=== PATIENT | female | born 1935 | race Caucasian/White ===

== ENCOUNTER 2018-08-19 11:21 | Inpatient (IN) | payer MEDICARE, OTHER ==
[~2018-08-19] VITALS: Ht 147.3 cm; Wt 56.8 kg
[~2018-08-19 11:21] MED LIST: ASPI-612 PO; ATEN25TA PO; ATOR20TA58 PO; CLOB15OI TP; CLOP75TA PO; HYDR15OI TP; LEVO25TA4 PO; METO25TA4 PO; SIMV20TA3 PO
--- NOTE | 2018-08-19 11:47 | PHYS DOC ---
Past Medical History Past Medical History: Dementia, Hypertension, Other Additional Past Medical Histor: POOR HISTORIAN Past Surgical History: Other Additional Past Surgical Histo: UNKNOWN Alcohol Use: None Drug Use: None Adult General Chief Complaint Chief Complaint: Palpitations HPI HPI Patient is a 83 year old female was brought here by EMS for evaluation of HEART PALPITATION, GENERALIZED WEAKNESS, EPIGASTRIC ABDOMINAL PAIN. Her family , patient had dementia, she had been treated for UTI recently. Patient woke up this morning feeling her heart was racing, with some abdominal pain, nausea. She had a remote history of atrial fibrillation, she is on atenolol. Due to the nausea and vomiting, patient did not take her atenolol this morning. EMS were called, they found her to be in SVT. Her heart rate was in the 180 beats per minutes. Patient somehow converted herself to sinus rhythm afterward. SHe continued to complain of epigastric abdominal pain. Patient denies any chest pain, no fever, no trouble breathing. Review of Systems Review of Systems Constitutional: Denies fever or chills [] Eyes: Denies change in visual acuity, redness, or eye pain [] HENT: Denies nasal congestion or sore throat [] Respiratory: Denies cough or shortness of breath [] Cardiovascular: POSITIVE FOR HEART PALPITATION. GI: Positive for abdominal pain, nausea, vomiting, NO bloody stools or diarrhea [] : Denies dysuria or hematuria [] Musculoskeletal: Denies back pain or joint pain [] Integument: Denies rash or skin lesions [] Neurologic: Denies headache, focal weakness or sensory changes [] Endocrine: Denies polyuria or polydipsia [] All other systems were reviewed and found to be within normal limits, except as documented in this note. Current Medications Current Medications Current Medications Medications (Trade) Dose Ordered Sig/Aly Start Time Stop Time Status Last Admin Dose Admin Morphine Sulfate (Morphine Sulfate) 2 mg PRN Q2HR PRN 08/19/18 15:15 08/20/18 15:14 Ondansetron HCl (Zofran) 4 mg PRN Q8HRS PRN 08/19/18 15:15 08/20/18 15:14 Sodium Chloride 1,000 ml @ 75 mls/hr [id number] 08/19/18 15:08 08/20/18 15:07 Allergies Allergies Allergies Coded Allergies Type Severity Reaction Last Updated Verified No Known Drug Allergies 09/28/15 No Physical Exam Physical Exam Constitutional: Well developed, well nourished, no acute distress, non-toxic appearance. [] HENT: Normocephalic, atraumatic, bilateral external ears normal, oropharynx moist, no oral exudates, nose normal. [] Eyes: PERRLA, EOMI, conjunctiva normal, no discharge. [] Neck: Normal range of motion, no tenderness, supple, no stridor. [] Cardiovascular:Heart rate regular rhythm, no murmur [] Lungs & Thorax: Bilateral breath sounds clear to auscultation [] Abdomen: Bowel sounds normal, soft, Tender to palpation in epigastric area, , no masses, no pulsatile masses. [] Skin: Warm, dry, no erythema, no rash. [] Back: No tenderness, no CVA tenderness. [] Extremities: No tenderness, no cyanosis, no clubbing, ROM intact, no edema. [] Neurologic: Alert, awake but disoriented to time and place, normal motor function, normal sensory function, no focal deficits noted. [] Psychologic: Affect normal, judgement normal, mood normal. [] Current Patient Data Vital Signs Vital Signs Date Time Temp Pulse Resp B/P (MAP) Pulse Ox O2 Delivery O2 Flow Rate FiO2 08/19/18 14:16 22 Room Air 08/19/18 14:00 76 98 08/19/18 12:30 192/118 (142) 08/19/18 11:21 98.3 98.3 Lab Values Laboratory Tests Test 08/19/18 11:51 08/19/18 11:57 White Blood Count 12.0 x10^3/uL (4.0-11.0) H Red Blood Count 4.64 x10^6/uL (3.50-5.40) Hemoglobin 13.7 g/dL (12.0-15.5) Hematocrit 40.0 % (36.0-47.0) Mean Corpuscular Volume 86 fL (79-100) Mean Corpuscular Hemoglobin 30 pg (25-35) Mean Corpuscular Hemoglobin Concent 34 g/dL (31-37) Red Cell Distribution Width 13.7 % (11.5-14.5) Platelet Count 257 x10^3/uL (140-400) Neutrophils (%) (Auto) 87 % (31-73) H Lymphocytes (%) (Auto) 7 % (24-48) L Monocytes (%) (Auto) 4 % (0-9) Eosinophils (%) (Auto) 1 % (0-3) Basophils (%) (Auto) 1 % (0-3) Neutrophils # (Auto) 10.5 x10^3uL (1.8-7.7) H Lymphocytes # (Auto) 0.8 x10^3/uL (1.0-4.8) L Monocytes # (Auto) 0.5 x10^3/uL (0.0-1.1) Eosinophils # (Auto) 0.1 x10^3/uL (0.0-0.7) Basophils # (Auto) 0.1 x10^3/uL (0.0-0.2) Segmented Neutrophils % 87 % (35-66) H Band Neutrophils % 1 % (0-9) Lymphocytes % 7 % (24-48) L Atypical Lymphocytes % (Manual) 1 % (0-0) H Monocytes % 4 % (0-10) Platelet Estimate Adequate (ADEQUATE) Large Platelets Few Prothrombin Time 13.0 SEC (11.7-14.0) Prothrombin Time INR 1.0 (0.8-1.1) Sodium Level 141 mmol/L (136-145) Potassium Level 4.8 mmol/L (3.5-5.1) Chloride Level 104 mmol/L (98-107) Carbon Dioxide Level 22 mmol/L (21-32) Anion Gap 15 (6-14) H Blood Urea Nitrogen 18 mg/dL (7-20) Creatinine 2.0 mg/dL (0.6-1.0) H Estimated GFR (Cockcroft-Gault) 23.7 BUN/Creatinine Ratio 9 (6-20) Glucose Level 139 mg/dL (70-99) H Calcium Level 9.7 mg/dL (8.5-10.1) Magnesium Level 2.3 mg/dL (1.8-2.4) Total Bilirubin 0.7 mg/dL (0.2-1.0) Aspartate Amino Transferase (AST) 29 U/L (15-37) Alanine Aminotransferase (ALT) 20 U/L (14-59) Alkaline Phosphatase 90 U/L (46-116) Creatine Kinase 72 U/L (26-192) Creatine Kinase MB (Mass) 1.3 ng/mL (0.0-3.6) Creatine Kinase MB Relative Index % (0-4) Troponin I Quantitative < 0.017 ng/mL (0.000-0.055) AY-Rrr-E-Type Natriuretic Peptide 295 pg/mL (0-449) Total Protein 7.6 g/dL (6.4-8.2) Albumin 3.3 g/dL (3.4-5.0) L Albumin/Globulin Ratio 0.8 (1.0-1.7) L Thyroid Stimulating Hormone (TSH) 1.931 uIU/mL (0.358-3.74) Free Thyroxine 1.45 ng/dL (0.76-1.46) Urine Collection Type Unknown Urine Color Yellow Urine Clarity Clear Urine pH 6.0 Urine Specific [place] 1.010 Urine Protein 100 mg/dL (NEG-TRACE) Urine Glucose (UA) Negative mg/dL (NEG) Urine Ketones (Stick) 15 mg/dL (NEG) Urine Blood Trace (NEG) Urine Nitrite Negative (NEG) Urine Bilirubin Negative (NEG) Urine Urobilinogen Dipstick 0.2 mg/dL (0.2 mg/dL) Urine Leukocyte Esterase Moderate (NEG) Urine RBC 0 /HPF (0-2) Urine WBC 20-40 /HPF (0-4) Urine Squamous Epithelial Cells Mod /LPF Urine Bacteria 0 /HPF (0-FEW) Urine Hyaline Casts Moderate /HPF Urine Mucus Mod /LPF Laboratory Tests 08/19/18 11:51 Laboratory Tests 08/19/18 11:51 EKG EKG EKG: HEART RATE 82 BPM, SINUS RHYTHM, NO STEMI. PROLONG QT Radiology/Procedures Radiology/Procedures [][facility] [address] [place] [address] IMAGING REPORT Signed PATIENT: HARESH GOMEZ ACCOUNT: [id number] : 1935 LOCATION: ER AGE: 83 SEX: F EXAM STATUS: PRE ER ORD. PHYSICIAN: BERTHA NETTLES DO REASON: heart palpitation PROCEDURE: PORTABLE CHEST 1V Portable chest, 08/19/2018: HISTORY: Tachycardia The heart size and pulmonary vascularity are within normal limits. No pulmonary infiltrate is seen. There is no evidence of pleural fluid. Scattered degenerative changes are present in the spine and at both shoulders. IMPRESSION: No acute cardiopulmonary abnormality is detected. Electronically signed by: Sundeep High MD (08/19/2018 12:14 PM) [facility] DICTATED and SIGNED BY: SUNDEEP HIGH MD DATE: 08/19/18 1213 [facility] [address] [place] [address] IMAGING REPORT Signed PATIENT: HARESH GOMEZ ACCOUNT: [id number] : 1935 LOCATION: ER AGE: 83 SEX: F EXAM STATUS: REG ER ORD. PHYSICIAN: BERTHA NETTLES DO REASON: abdominal pain, evaluate gallbladder PROCEDURE: ABDOMEN LTD LIMITED ABDOMINAL ULTRASOUND History: Right upper quadrant pain. Comparison: CT abdomen pelvis August 19, 2018. Procedure: Transabdominal ultrasound images are obtained. Findings: Visualized pancreas is unremarkable. Liver is normal in echogenicity. No focal hepatic masses are identified. Right hepatic lobe measures 10.9 cm in length. Gallbladder gallbladder demonstrates presence of small gallstones in the gallbladder neck. No pericholecystic fluid is identified. The gallbladder wall is borderline in size measuring 3-4 mm. Common bile duct measures normally at 3 mm in diameter. Right kidney measures 9.0 cm in length. There is no evidence of stone or hydronephrosis. Visualized IVC demonstrates normal caliber. Impression: 1. Small gallstones are seen near the gallbladder neck. Borderline gallbladder wall thickening is seen. No pericholecystic fluid is identified. Examination is considered equivocal for acute cystitis. If persistent concern for cholecystitis, nuclear medicine hepatic biliary scan could be performed. Electronically signed by: Tomy Salcedo MD (08/19/2018 3:12 PM) [place] [id number] DICTATED and SIGNED BY: TOMY SALCEDO MD DATE: 08/19/18 1508 [facility] [address] [place] [address] IMAGING REPORT Signed PATIENT: HARESH GOMEZ ACCOUNT: [id number] : 1935 LOCATION: ER AGE: 83 SEX: F EXAM STATUS: REG ER ORD. PHYSICIAN: BERTHA NETTLES DO REASON: LOWER ABDOMINAL PAIN PROCEDURE: CT ABDOMEN PELVIS WO CONTRAST PQRS Compliance Statement: One or more of the following individualized dose reduction techniques were utilized for this examination: 1. Automated exposure control 2. Adjustment of the mA and/or kV according to patient size 3. Use of iterative reconstruction technique CT ABDOMEN PELVIS WO CONTRAST Clinical Indication: LOWER ABD PAIN, nausea Comparison: None. Technique: Helical CT imaging of the abdomen and pelvis is performed without IV or oral contrast. Findings: Evaluation of solid organs and bowel is limited without oral and IV contrast, decreasing sensitivity for detection of pathology. Lung bases essentially clear. Coronary artery disease. Cardiac size normal. Cholelithiasis. Respiratory motion artifact degrades image quality. The liver, spleen, pancreas, adrenal glands, and abdominal aorta caliber are normal. There is moderate atherosclerotic calcification of the abdominal aorta. The kidneys are normal. Stomach unremarkable. No dilated small bowel. Mild distention of the rectum with stool. Sigmoid colon diverticulosis. Appendix not identified, no secondary signs of appendicitis. No abdominal adenopathy or free fluid. Urinary bladder is normal. Calcification in the uterus may be a small calcified fibroid. No pelvic free fluid. Mild grade 1 anterolisthesis of L3 on L4 and L4 on L5. IMPRESSION: 1. No acute abdominal or pelvic abnormality. 2. Sigmoid colon diverticulosis without diverticulitis. 3. Cholelithiasis. Electronically signed by: Diony Frank MD (08/19/2018 2:28 PM) [id number] DICTATED and SIGNED BY: DIONY FRANK MD DATE: 08/19/18 1422 Course & Med Decision Making Course & Med Decision Making Pertinent Labs and Imaging studies reviewed. (See chart for details) [] Dragon Disclaimer Dragon Disclaimer This electronic medical record was generated, in whole or in part, using a voice recognition dictation system. Departure Departure Impression: Primary Impression: Intermittent palpitations Additional Impressions: Cholelithiasis Renal failure Disposition: ADMITTED INPATIENT Admitting Physician: Xie. Berumen Condition: STABLE Referrals: BERTHA JARRETT MD (PCP) Problem Qualifiers BERTHA NETTLES DO Aug 19, 2018 11:47
[2018-08-19 12:02] LABS: BASO # 0.1 x10^3/uL (0.0-0.2); BASO % 1 % (0-3); EOS # 0.1 x10^3/uL (0.0-0.7); EOS % 1 % (0-3); HEMOGLOBIN 13.7 g/dL (12.0-15.5); LYMPH # 0.8 x10^3/uL (1.0-4.8); LYMPH % 7 % (24-48); MEAN CORPUSCULAR HEMOGLOBIN 30 pg (25-35); MEAN CORPUSCULAR HGB CONC 34 g/dL (31-37); MEAN CORPUSCULAR VOLUME 86 fL (79-100); MONO # 0.5 x10^3/uL (0.0-1.1); MONO % 4 % (0-9); NEUT # 10.5 x10^3uL (1.8-7.7); NEUT % 87 % (31-73); PLATELET COUNT 257 x10^3/uL (140-400); RED BLOOD COUNT 4.64 x10^6/uL (3.50-5.40); RED CELL DISTRIBUTION WIDTH 13.7 % (11.5-14.5)
[2018-08-19 12:15] LABS: CALCIUM 9.7 mg/dL (8.5-10.1); GFR 23.7; POTASSIUM 4.8 mmol/L (3.5-5.1)
--- NOTE | 2018-08-19 12:16 | EKG ---
[facility] [address] [place] [address] Test Date: 2018-08-19 Test Time: 11:32:56 Pat Name: HARESH GOMEZ Department: Room: Gender: F [employer]: : 1935 Requested By: BERTHA NETTLES Order Number: [id number] Reading MD: Adam Herring Measurements Intervals Tracy Rate: 82 P: 37 HI: 136 QRS: -29 QRSD: 114 T: 59 QT: 418 QTc: 492 Interpretive Statements SINUS RHYTHM LEFTWARD AXIS T ABNORMALITY IN HIGH LATERAL LEADS PROLONGED QT ABNORMAL ECG Electronically Signed On 08-21-2018 10:33:47 CDT by Adam Herring
--- NOTE | 2018-08-19 12:17 | RAD ---
Portable chest, 08/19/2018: HISTORY: Tachycardia The heart size and pulmonary vascularity are within normal limits. No pulmonary infiltrate is seen. There is no evidence of pleural fluid. Scattered degenerative changes are present in the spine and at both shoulders. IMPRESSION: No acute cardiopulmonary abnormality is detected. Electronically signed by: Sundeep High MD (08/19/2018 12:14 PM) [facility]
[2018-08-19 12:21] LABS: ALBUMIN 3.3 g/dL (3.4-5.0); ALBUMIN/GLOBULIN RATIO 0.8 (1.0-1.7); MAGNESIUM 2.3 mg/dL (1.8-2.4); TOTAL BILIRUBIN 0.7 mg/dL (0.2-1.0); TOTAL PROTEIN 7.6 g/dL (6.4-8.2)
[2018-08-19 12:27] LABS: BILIRUBIN,URINE NEGATIVE (NEG); CLARITY,URINE CLEAR; COLOR,URINE YELLOW; NITRITE,URINE NEGATIVE (NEG); PROTEIN,URINE 100 mg/dL (NEG-TRACE); UROBILINOGEN,URINE 0.2 mg/dL (0.2 mg/dL)
[2018-08-19 12:30] LABS: CREATINE KINASE 72 U/L (26-192); FREE T4 1.45 ng/dL (0.76-1.46); THYROID STIM HORMONE (TSH) 1.931 uIU/mL (0.358-3.74)
[2018-08-19 12:43] LABS: BACTERIA,URINE 0 /HPF (0-FEW); HYALINE CASTS, URINE MODERATE /HPF; RBC,URINE 0 /HPF (0-2); SQUAMOUS EPITHELIAL CELL,UR MOD /LPF; WBC,URINE 20-40 /HPF (0-4)
[2018-08-19] MEDS ORDERED: IV NORMAL SALINE 1000ML BAG 1,000 ML IV ONE (13:00)
[2018-08-19] MEDS ORDERED: MORPHINE SULFATE 4 MG/ML VIAL. IV ONE (14:00)
[2018-08-19 14:01] LABS: % ATYL 1 % (0-0); % BANDS 1 % (0-9); % LYMPHS 7 % (24-48); % MONOS 4 % (0-10); % SEGS 87 % (35-66); PLT ESTIMATE ADEQUATE (ADEQUATE)
--- NOTE | 2018-08-19 14:31 | RAD ---
PQRS Compliance Statement: One or more of the following individualized dose reduction techniques were utilized for this examination: 1. Automated exposure control 2. Adjustment of the mA and/or kV according to patient size 3. Use of iterative reconstruction technique CT ABDOMEN PELVIS WO CONTRAST Clinical Indication: LOWER ABD PAIN, nausea Comparison: None. Technique: Helical CT imaging of the abdomen and pelvis is performed without IV or oral contrast. Findings: Evaluation of solid organs and bowel is limited without oral and IV contrast, decreasing sensitivity for detection of pathology. Lung bases essentially clear. Coronary artery disease. Cardiac size normal. Cholelithiasis. Respiratory motion artifact degrades image quality. The liver, spleen, pancreas, adrenal glands, and abdominal aorta caliber are normal. There is moderate atherosclerotic calcification of the abdominal aorta. The kidneys are normal. Stomach unremarkable. No dilated small bowel. Mild distention of the rectum with stool. Sigmoid colon diverticulosis. Appendix not identified, no secondary signs of appendicitis. No abdominal adenopathy or free fluid. Urinary bladder is normal. Calcification in the uterus may be a small calcified fibroid. No pelvic free fluid. Mild grade 1 anterolisthesis of L3 on L4 and L4 on L5. IMPRESSION: 1. No acute abdominal or pelvic abnormality. 2. Sigmoid colon diverticulosis without diverticulitis. 3. Cholelithiasis. Electronically signed by: Diony Frank MD (08/19/2018 2:28 PM) [id number]
[2018-08-19] MEDS ORDERED: MORPHINE SULFATE 2 MG/ML VIAL. IV PRN ×2 (15:15→17:00)
[2018-08-19] MEDS ORDERED: ONDANSETRON PF 4 MG/2 ML VIAL. IV PRN ×2 (15:15→17:00)
--- NOTE | 2018-08-19 15:15 | RAD ---
LIMITED ABDOMINAL ULTRASOUND History: Right upper quadrant pain. Comparison: CT abdomen pelvis August 19, 2018. Procedure: Transabdominal ultrasound images are obtained. Findings: Visualized pancreas is unremarkable. Liver is normal in echogenicity. No focal hepatic masses are identified. Right hepatic lobe measures 10.9 cm in length. Gallbladder gallbladder demonstrates presence of small gallstones in the gallbladder neck. No pericholecystic fluid is identified. The gallbladder wall is borderline in size measuring 3-4 mm. Common bile duct measures normally at 3 mm in diameter. Right kidney measures 9.0 cm in length. There is no evidence of stone or hydronephrosis. Visualized IVC demonstrates normal caliber. Impression: 1. Small gallstones are seen near the gallbladder neck. Borderline gallbladder wall thickening is seen. No pericholecystic fluid is identified. Examination is considered equivocal for acute cystitis. If persistent concern for cholecystitis, nuclear medicine hepatic biliary scan could be performed. Electronically signed by: Tomy Díaz MD (08/19/2018 3:12 PM) [id number]
[2018-08-19 17:00] VITALS: BP 140/65
[2018-08-19] MEDS ORDERED: DOCUSATE SODIUM 100 MG CAPSULE. PO PRN (17:00)
[2018-08-19] MEDS ORDERED: traMADol 50 MG TABLET PO PRN (17:00)
[2018-08-19] MEDS ORDERED: ACETAMINOPHEN 325 MG TABLET. PO PRN (17:00)
--- NOTE | 2018-08-19 17:02 | PDOC1 ---
History and Physical Date of Admission Date of Admission 08/19/18 Identification/Chief Complaint Chief Complaint heart racing Source Source: Caregiver, Chart review, Patient History of Present Illness History of Present Illness HPI HPI Patient is a 83 year old female was brought here by EMS for evaluation of HEART PALPITATION today. pt is moderate demented, just said she didnot feel good today after waking up. and daughter at bedside helps the history. at work recieved her voicemail today saying she was not feeling good and heart racing. Pt called 911 since she could not reach . EMS found HR 180s, SVT vs. rapid afib. didnot give any meds, pt coverted to sinus later. pt has a few times of rapid afib recently, not seen card. She had nausea today, no vomiting, no chest pain or sob. She has epigastric abd pain. CT showed gallstone. NOW sinus 70s in ER. was converted to sinus 2014. was treated UTI recently. Past Medical History Cardiovascular: AFIB, HTN, Hyperlipidemia Renal/: UTI Endocrine: Hypothyroidism Past Surgical History Past Surgical History: No pertinent history Family History Family History: Hypertension Social History Smoke: No ALCOHOL: none Drugs: None Current Problem List Problem List Problems Medical Problems: (1) Cholelithiasis Status: Acute (2) Intermittent palpitations Status: Acute (3) Renal failure Status: Acute Current Medications Current Medications Current Medications Medications (Trade) Dose Ordered Sig/Aly Start Time Stop Time Status Last Admin Dose Admin Morphine Sulfate (Morphine Sulfate) 2 mg PRN Q2HR PRN 08/19/18 15:15 08/20/18 15:14 Ondansetron HCl (Zofran) 4 mg PRN Q8HRS PRN 08/19/18 15:15 08/20/18 15:14 Sodium Chloride 1,000 ml @ 75 mls/hr [id number] 08/19/18 15:08 08/20/18 15:07 Allergies Allergies Allergies Coded Allergies Type Severity Reaction Last Updated Verified No Known Drug Allergies 09/28/15 No ROS Review of System CONSTITUTIONAL: No fever or chills EYES: No recent changes SKIN: No rash or itching CARDIOVASCULAR: No chest pain, syncope, palpitations, or edema RESPIRATORY: No SOB or cough GASTROINTESTINAL: No nausea, vomiting or abdominal pain NEUROLOGICAL: No headaches or weakness ENDOCRINE: No cold or heat intolerance GENITOURINARY: No urgency or frequency of urination MUSCULOSKELETAL: No back pain or joint pain LYMPHATICS: No enlarged lymph nodes PSYCHIATRIC: No anxiety or depression Physical Exam Physical Exam GEN.: No apparent distress. Alert and oriented x2 to person, place. HEENT: Head is normocephalic, atraumatic NECK: Supple. LUNGS: Clear to auscultation. HEART: RRR, S1, S2 present. Peripheral pulses intact ABDOMEN: Soft, Positive bowel sounds. epigastric mild tenderness. EXTREMITIES: Without any cyanosis. NEUROLOGIC: Normal speech, normal tone PSYCHIATRIC: Normal affect, normal mood. SKIN: No ulcerations Vitals Vitals Vital Signs Date Time Temp Pulse Resp B/P (MAP) Pulse Ox O2 Delivery O2 Flow Rate FiO2 08/19/18 15:30 74 22 99/53 (68) 98 Room Air 08/19/18 11:21 98.3 98.3 Labs Labs Laboratory Tests Test 08/19/18 11:51 08/19/18 11:57 White Blood Count 12.0 x10^3/uL (4.0-11.0) Red Blood Count 4.64 x10^6/uL (3.50-5.40) Hemoglobin 13.7 g/dL (12.0-15.5) Hematocrit 40.0 % (36.0-47.0) Mean Corpuscular Volume 86 fL (79-100) Mean Corpuscular Hemoglobin 30 pg (25-35) Mean Corpuscular Hemoglobin Concent 34 g/dL (31-37) Red Cell Distribution Width 13.7 % (11.5-14.5) Platelet Count 257 x10^3/uL (140-400) Neutrophils (%) (Auto) 87 % (31-73) Lymphocytes (%) (Auto) 7 % (24-48) Monocytes (%) (Auto) 4 % (0-9) Eosinophils (%) (Auto) 1 % (0-3) Basophils (%) (Auto) 1 % (0-3) Neutrophils # (Auto) 10.5 x10^3uL (1.8-7.7) Lymphocytes # (Auto) 0.8 x10^3/uL (1.0-4.8) Monocytes # (Auto) 0.5 x10^3/uL (0.0-1.1) Eosinophils # (Auto) 0.1 x10^3/uL (0.0-0.7) Basophils # (Auto) 0.1 x10^3/uL (0.0-0.2) Segmented Neutrophils % 87 % (35-66) Band Neutrophils % 1 % (0-9) Lymphocytes % 7 % (24-48) Atypical Lymphocytes % (Manual) 1 % (0-0) Monocytes % 4 % (0-10) Platelet Estimate Adequate (ADEQUATE) Large Platelets Few Prothrombin Time 13.0 SEC (11.7-14.0) Prothromb Time International Ratio 1.0 (0.8-1.1) Sodium Level 141 mmol/L (136-145) Potassium Level 4.8 mmol/L (3.5-5.1) Chloride Level 104 mmol/L (98-107) Carbon Dioxide Level 22 mmol/L (21-32) Anion Gap 15 (6-14) Blood Urea Nitrogen 18 mg/dL (7-20) Creatinine 2.0 mg/dL (0.6-1.0) Estimated GFR (Cockcroft-Gault) 23.7 BUN/Creatinine Ratio 9 (6-20) Glucose Level 139 mg/dL (70-99) Calcium Level 9.7 mg/dL (8.5-10.1) Magnesium Level 2.3 mg/dL (1.8-2.4) Total Bilirubin 0.7 mg/dL (0.2-1.0) Aspartate Amino Transf (AST/SGOT) 29 U/L (15-37) Alanine Aminotransferase (ALT/SGPT) 20 U/L (14-59) Alkaline Phosphatase 90 U/L (46-116) Creatine Kinase 72 U/L (26-192) Creatine Kinase MB (Mass) 1.3 ng/mL (0.0-3.6) Creatine Kinase MB Relative Index % (0-4) Troponin I Quantitative < 0.017 ng/mL (0.000-0.055) TH-Xth-W-Type Natriuretic Peptide 295 pg/mL (0-449) Total Protein 7.6 g/dL (6.4-8.2) Albumin 3.3 g/dL (3.4-5.0) Albumin/Globulin Ratio 0.8 (1.0-1.7) Thyroid Stimulating Hormone (TSH) 1.931 uIU/mL (0.358-3.74) Free Thyroxine 1.45 ng/dL (0.76-1.46) Urine Collection Type Unknown Urine Color Yellow Urine Clarity Clear Urine pH 6.0 Urine Specific [place] 1.010 Urine Protein 100 mg/dL (NEG-TRACE) Urine Glucose (UA) Negative mg/dL (NEG) Urine Ketones (Stick) 15 mg/dL (NEG) Urine Blood Trace (NEG) Urine Nitrite Negative (NEG) Urine Bilirubin Negative (NEG) Urine Urobilinogen Dipstick 0.2 mg/dL (0.2 mg/dL) Urine Leukocyte Esterase Moderate (NEG) Urine RBC 0 /HPF (0-2) Urine WBC 20-40 /HPF (0-4) Urine Squamous Epithelial Cells Mod /LPF Urine Bacteria 0 /HPF (0-FEW) Urine Hyaline Casts Moderate /HPF Urine Mucus Mod /LPF Laboratory Tests Test 08/19/18 11:51 08/19/18 11:57 White Blood Count 12.0 x10^3/uL (4.0-11.0) Red Blood Count 4.64 x10^6/uL (3.50-5.40) Hemoglobin 13.7 g/dL (12.0-15.5) Hematocrit 40.0 % (36.0-47.0) Mean Corpuscular Volume 86 fL (79-100) Mean Corpuscular Hemoglobin 30 pg (25-35) Mean Corpuscular Hemoglobin Concent 34 g/dL (31-37) Red Cell Distribution Width 13.7 % (11.5-14.5) Platelet Count 257 x10^3/uL (140-400) Neutrophils (%) (Auto) 87 % (31-73) Lymphocytes (%) (Auto) 7 % (24-48) Monocytes (%) (Auto) 4 % (0-9) Eosinophils (%) (Auto) 1 % (0-3) Basophils (%) (Auto) 1 % (0-3) Neutrophils # (Auto) 10.5 x10^3uL (1.8-7.7) Lymphocytes # (Auto) 0.8 x10^3/uL (1.0-4.8) Monocytes # (Auto) 0.5 x10^3/uL (0.0-1.1) Eosinophils # (Auto) 0.1 x10^3/uL (0.0-0.7) Basophils # (Auto) 0.1 x10^3/uL (0.0-0.2) Segmented Neutrophils % 87 % (35-66) Band Neutrophils % 1 % (0-9) Lymphocytes % 7 % (24-48) Atypical Lymphocytes % (Manual) 1 % (0-0) Monocytes % 4 % (0-10) Platelet Estimate Adequate (ADEQUATE) Large Platelets Few Prothrombin Time 13.0 SEC (11.7-14.0) Prothromb Time International Ratio 1.0 (0.8-1.1) Sodium Level 141 mmol/L (136-145) Potassium Level 4.8 mmol/L (3.5-5.1) Chloride Level 104 mmol/L (98-107) Carbon Dioxide Level 22 mmol/L (21-32) Anion Gap 15 (6-14) Blood Urea Nitrogen 18 mg/dL (7-20) Creatinine 2.0 mg/dL (0.6-1.0) Estimated GFR (Cockcroft-Gault) 23.7 BUN/Creatinine Ratio 9 (6-20) Glucose Level 139 mg/dL (70-99) Calcium Level 9.7 mg/dL (8.5-10.1) Magnesium Level 2.3 mg/dL (1.8-2.4) Total Bilirubin 0.7 mg/dL (0.2-1.0) Aspartate Amino Transf (AST/SGOT) 29 U/L (15-37) Alanine Aminotransferase (ALT/SGPT) 20 U/L (14-59) Alkaline Phosphatase 90 U/L (46-116) Creatine Kinase 72 U/L (26-192) Creatine Kinase MB (Mass) 1.3 ng/mL (0.0-3.6) Creatine Kinase MB Relative Index % (0-4) Troponin I Quantitative < 0.017 ng/mL (0.000-0.055) TG-Jhr-X-Type Natriuretic Peptide 295 pg/mL (0-449) Total Protein 7.6 g/dL (6.4-8.2) Albumin 3.3 g/dL (3.4-5.0) Albumin/Globulin Ratio 0.8 (1.0-1.7) Thyroid Stimulating Hormone (TSH) 1.931 uIU/mL (0.358-3.74) Free Thyroxine 1.45 ng/dL (0.76-1.46) Urine Collection Type Unknown Urine Color Yellow Urine Clarity Clear Urine pH 6.0 Urine Specific [place] 1.010 Urine Protein 100 mg/dL (NEG-TRACE) Urine Glucose (UA) Negative mg/dL (NEG) Urine Ketones (Stick) 15 mg/dL (NEG) Urine Blood Trace (NEG) Urine Nitrite Negative (NEG) Urine Bilirubin Negative (NEG) Urine Urobilinogen Dipstick 0.2 mg/dL (0.2 mg/dL) Urine Leukocyte Esterase Moderate (NEG) Urine RBC 0 /HPF (0-2) Urine WBC 20-40 /HPF (0-4) Urine Squamous Epithelial Cells Mod /LPF Urine Bacteria 0 /HPF (0-FEW) Urine Hyaline Casts Moderate /HPF Urine Mucus Mod /LPF VTE Prophylaxis Ordered VTE Prophylaxis Devices: Yes VTE Pharmacological Prophylaxi: Yes Assessment/Plan Assessment/Plan rapid afib moderate-severe dementia HTN abd pain with cholelithiasis EMMANUEL, vasomotor mild malnutrition leukocytosis plan: card, gi, sx consult echo tsh ok cont metoprolol for now tele ivf labs tmr US showed possible acute lillian, add ceftriaxone, flagyl for now dvt ppx PTOT SCARLETT MARX MD Aug 19, 2018 17:02
[2018-08-19] MEDS ORDERED: FLUO20CA8 PO (17:05)
[2018-08-19] MEDS ORDERED: ATEN50TA PO (17:05)
[2018-08-19] MEDS ORDERED: OMEP20CA9 PO (17:05)
[2018-08-19] MEDS: IV NORMAL SALINE 1000ML BAG 1,000 ML IV SCH (17:35)
[2018-08-19] MEDS: cefTRIAXone IV Push 1 GM VIAL. IVP SCH (17:42)
[2018-08-19] MEDS: ALPRAZolam 0.25 MG TABLET PO PRN (17:51)
[2018-08-19 19:00] VITALS: BP 121/55
[2018-08-19] MEDS: METOPROLOL TART IMMED RELEASE 25 MG TABLET. PO SCH (21:22)
[2018-08-19] MEDS: ATORVASTATIN CALCIUM 20 MG TABLET PO SCH (21:22)
[2018-08-19] MEDS: LACTOBACILLUS RHAMNOSUS GG 1 CAPSULE. PO SCH (21:22)
[2018-08-19] MEDS: ENOXAPARIN 30 MG/0.3 ML SYRINGE. SQ SCH (21:23)
[2018-08-19] MEDS: CLOBETASOL EMOLLIENT 0.05% TOPICAL CREAM 15GM TUBE. TP SCH (21:23)
[2018-08-19 23:00] VITALS: BP 139/67
[2018-08-20 03:00] VITALS: BP 140/70
[2018-08-20] MEDS: IV NORMAL SALINE 1000ML BAG 1,000 ML IV SCH (05:48)
[2018-08-20] MEDS: LEVOTHYROXINE 25 MCG TABLET. PO SCH (05:48)
[2018-08-20] MEDS: ALPRAZolam 0.25 MG TABLET PO PRN ×3 (05:48→23:44)
[2018-08-20 06:01] LABS: BASO # 0.1 x10^3/uL (0.0-0.2); BASO % 1 % (0-3); EOS # 0.3 x10^3/uL (0.0-0.7); EOS % 4 % (0-3); HEMATOCRIT 34.1 % (36.0-47.0); HEMOGLOBIN 11.8 g/dL (12.0-15.5); LYMPH # 1.5 x10^3/uL (1.0-4.8); LYMPH % 20 % (24-48); MEAN CORPUSCULAR HEMOGLOBIN 30 pg (25-35); MEAN CORPUSCULAR HGB CONC 35 g/dL (31-37); MEAN CORPUSCULAR VOLUME 86 fL (79-100); MONO # 0.6 x10^3/uL (0.0-1.1); MONO % 8 % (0-9); NEUT # 5.1 x10^3uL (1.8-7.7); NEUT % 67 % (31-73); PLATELET COUNT 209 x10^3/uL (140-400); RED BLOOD COUNT 3.96 x10^6/uL (3.50-5.40); RED CELL DISTRIBUTION WIDTH 13.8 % (11.5-14.5); WHITE BLOOD COUNT 7.5 x10^3/uL (4.0-11.0)
[2018-08-20 06:07] LABS: CALCIUM 8.2 mg/dL (8.5-10.1); CREATININE 1.6 mg/dL (0.6-1.0); GFR 30.7; POTASSIUM 4.3 mmol/L (3.5-5.1)
[2018-08-20 07:00] VITALS: BP 84/63
--- NOTE | 2018-08-20 08:08 | PDOC ---
PROGRESS NOTES Chief Complaint Chief Complaint rapid afib moderate-severe dementia HTN abd pain with cholelithiasis EMMANUEL, vasomotor mild malnutrition leukocytosis History of Present Illness History of Present Illness Patient is a 83 year old female was brought here by EMS for evaluation of HEART PALPITATION, is moderately demented, just said she did not feel good today after waking up. and daughter at bedside helps the history. EMS found HR 180s, SVT vs. rapid afib. didnot give any meds, pt coverted to sinus later. Takes atenolol, family notes this used to happen once every few months, now seems like a weekly occurrence, pt has a few times of rapid afib recently, not seen card. was cardioverted to sinus 2014. She had nausea today, no vomiting, no chest pain or sob. She has epigastric abd pain. CT showed gallstone. NOW sinus 70s. She is asking when she can go home Leukocytosis resolved today. Cr down from 2 to 1.6 today as well. Seen by GI, equivocal RUQ US, going for HIDA scan later A/P: rapid afib moderate-severe dementia HTN abd pain with cholelithiasis EMMANUEL, vasomotor mild malnutrition leukocytosis plan: card, gi, sx consult echo tsh ok cont metoprolol for now tele ivf labs tmr US showed possible acute lillian, added ceftriaxone, flagyl for now dvt ppx PTOT Vitals Vitals Vital Signs Date Time Temp Pulse Resp B/P (MAP) Pulse Ox O2 Delivery O2 Flow Rate FiO2 08/20/18 03:00 97.7 65 18 140/70 (93) 97 Room Air 97.7 Physical Exam General: Alert, Cooperative, No acute distress Heart: Regular rate, Normal S1, Normal S2 Lungs: Clear Abdomen: Normal bowel sounds, Soft Extremities: No clubbing, No edema, Normal pulses Skin: No significant lesion Labs LABS Laboratory Tests Test 08/19/18 11:51 08/19/18 11:57 08/19/18 19:55 08/20/18 04:10 White Blood Count 12.0 x10^3/uL (4.0-11.0) 7.5 x10^3/uL (4.0-11.0) Red Blood Count 4.64 x10^6/uL (3.50-5.40) 3.96 x10^6/uL (3.50-5.40) Hemoglobin 13.7 g/dL (12.0-15.5) 11.8 g/dL (12.0-15.5) Hematocrit 40.0 % (36.0-47.0) 34.1 % (36.0-47.0) Mean Corpuscular Volume 86 fL (79-100) 86 fL (79-100) Mean Corpuscular Hemoglobin 30 pg (25-35) 30 pg (25-35) Mean Corpuscular Hemoglobin Concent 34 g/dL (31-37) 35 g/dL (31-37) Red Cell Distribution Width 13.7 % (11.5-14.5) 13.8 % (11.5-14.5) Platelet Count 257 x10^3/uL (140-400) 209 x10^3/uL (140-400) Neutrophils (%) (Auto) 87 % (31-73) 67 % (31-73) Lymphocytes (%) (Auto) 7 % (24-48) 20 % (24-48) Monocytes (%) (Auto) 4 % (0-9) 8 % (0-9) Eosinophils (%) (Auto) 1 % (0-3) 4 % (0-3) Basophils (%) (Auto) 1 % (0-3) 1 % (0-3) Neutrophils # (Auto) 10.5 x10^3uL (1.8-7.7) 5.1 x10^3uL (1.8-7.7) Lymphocytes # (Auto) 0.8 x10^3/uL (1.0-4.8) 1.5 x10^3/uL (1.0-4.8) Monocytes # (Auto) 0.5 x10^3/uL (0.0-1.1) 0.6 x10^3/uL (0.0-1.1) Eosinophils # (Auto) 0.1 x10^3/uL (0.0-0.7) 0.3 x10^3/uL (0.0-0.7) Basophils # (Auto) 0.1 x10^3/uL (0.0-0.2) 0.1 x10^3/uL (0.0-0.2) Segmented Neutrophils % 87 % (35-66) Band Neutrophils % 1 % (0-9) Lymphocytes % 7 % (24-48) Atypical Lymphocytes % (Manual) 1 % (0-0) Monocytes % 4 % (0-10) Platelet Estimate Adequate (ADEQUATE) Large Platelets Few Prothrombin Time 13.0 SEC (11.7-14.0) Prothromb Time International Ratio 1.0 (0.8-1.1) Sodium Level 141 mmol/L (136-145) 144 mmol/L (136-145) Potassium Level 4.8 mmol/L (3.5-5.1) 4.3 mmol/L (3.5-5.1) Chloride Level 104 mmol/L (98-107) 110 mmol/L (98-107) Carbon Dioxide Level 22 mmol/L (21-32) 23 mmol/L (21-32) Anion Gap 15 (6-14) 11 (6-14) Blood Urea Nitrogen 18 mg/dL (7-20) 15 mg/dL (7-20) Creatinine 2.0 mg/dL (0.6-1.0) 1.6 mg/dL (0.6-1.0) Estimated GFR (Cockcroft-Gault) 23.7 30.7 BUN/Creatinine Ratio 9 (6-20) Glucose Level 139 mg/dL (70-99) 76 mg/dL (70-99) Calcium Level 9.7 mg/dL (8.5-10.1) 8.2 mg/dL (8.5-10.1) Magnesium Level 2.3 mg/dL (1.8-2.4) Total Bilirubin 0.7 mg/dL (0.2-1.0) Aspartate Amino Transf (AST/SGOT) 29 U/L (15-37) Alanine Aminotransferase (ALT/SGPT) 20 U/L (14-59) Alkaline Phosphatase 90 U/L (46-116) Creatine Kinase 72 U/L (26-192) Creatine Kinase MB (Mass) 1.3 ng/mL (0.0-3.6) Creatine Kinase MB Relative Index % (0-4) Troponin I Quantitative < 0.017 ng/mL (0.000-0.055) IB-Cyy-W-Type Natriuretic Peptide 295 pg/mL (0-449) Total Protein 7.6 g/dL (6.4-8.2) Albumin 3.3 g/dL (3.4-5.0) Albumin/Globulin Ratio 0.8 (1.0-1.7) Thyroid Stimulating Hormone (TSH) 1.931 uIU/mL (0.358-3.74) Free Thyroxine 1.45 ng/dL (0.76-1.46) Urine Collection Type Unknown Urine Color Yellow Urine Clarity Clear Urine pH 6.0 Urine Specific Carmichaels 1.010 Urine Protein 100 mg/dL (NEG-TRACE) Urine Glucose (UA) Negative mg/dL (NEG) Urine Ketones (Stick) 15 mg/dL (NEG) Urine Blood Trace (NEG) Urine Nitrite Negative (NEG) Urine Bilirubin Negative (NEG) Urine Urobilinogen Dipstick 0.2 mg/dL (0.2 mg/dL) Urine Leukocyte Esterase Moderate (NEG) Urine RBC 0 /HPF (0-2) Urine WBC 20-40 /HPF (0-4) Urine Squamous Epithelial Cells Mod /LPF Urine Bacteria 0 /HPF (0-FEW) Urine Hyaline Casts Moderate /HPF Urine Mucus Mod /LPF Glucose (Fingerstick) 81 mg/dL (70-99) Assessment and Plan Assessmemt and Plan Problems Medical Problems: (1) Cholelithiasis Status: Acute (2) Intermittent palpitations Status: Acute (3) Renal failure Status: Acute Comment Review of Relevant I have reviewed the following items gildardo (where applicable) has been applied. Labs Laboratory Tests Test 08/19/18 11:51 08/19/18 11:57 08/19/18 19:55 08/20/18 04:10 White Blood Count 12.0 x10^3/uL (4.0-11.0) 7.5 x10^3/uL (4.0-11.0) Red Blood Count 4.64 x10^6/uL (3.50-5.40) 3.96 x10^6/uL (3.50-5.40) Hemoglobin 13.7 g/dL (12.0-15.5) 11.8 g/dL (12.0-15.5) Hematocrit 40.0 % (36.0-47.0) 34.1 % (36.0-47.0) Mean Corpuscular Volume 86 fL (79-100) 86 fL (79-100) Mean Corpuscular Hemoglobin 30 pg (25-35) 30 pg (25-35) Mean Corpuscular Hemoglobin Concent 34 g/dL (31-37) 35 g/dL (31-37) Red Cell Distribution Width 13.7 % (11.5-14.5) 13.8 % (11.5-14.5) Platelet Count 257 x10^3/uL (140-400) 209 x10^3/uL (140-400) Neutrophils (%) (Auto) 87 % (31-73) 67 % (31-73) Lymphocytes (%) (Auto) 7 % (24-48) 20 % (24-48) Monocytes (%) (Auto) 4 % (0-9) 8 % (0-9) Eosinophils (%) (Auto) 1 % (0-3) 4 % (0-3) Basophils (%) (Auto) 1 % (0-3) 1 % (0-3) Neutrophils # (Auto) 10.5 x10^3uL (1.8-7.7) 5.1 x10^3uL (1.8-7.7) Lymphocytes # (Auto) 0.8 x10^3/uL (1.0-4.8) 1.5 x10^3/uL (1.0-4.8) Monocytes # (Auto) 0.5 x10^3/uL (0.0-1.1) 0.6 x10^3/uL (0.0-1.1) Eosinophils # (Auto) 0.1 x10^3/uL (0.0-0.7) 0.3 x10^3/uL (0.0-0.7) Basophils # (Auto) 0.1 x10^3/uL (0.0-0.2) 0.1 x10^3/uL (0.0-0.2) Segmented Neutrophils % 87 % (35-66) Band Neutrophils % 1 % (0-9) Lymphocytes % 7 % (24-48) Atypical Lymphocytes % (Manual) 1 % (0-0) Monocytes % 4 % (0-10) Platelet Estimate Adequate (ADEQUATE) Large Platelets Few Prothrombin Time 13.0 SEC (11.7-14.0) Prothromb Time International Ratio 1.0 (0.8-1.1) Sodium Level 141 mmol/L (136-145) 144 mmol/L (136-145) Potassium Level 4.8 mmol/L (3.5-5.1) 4.3 mmol/L (3.5-5.1) Chloride Level 104 mmol/L (98-107) 110 mmol/L (98-107) Carbon Dioxide Level 22 mmol/L (21-32) 23 mmol/L (21-32) Anion Gap 15 (6-14) 11 (6-14) Blood Urea Nitrogen 18 mg/dL (7-20) 15 mg/dL (7-20) Creatinine 2.0 mg/dL (0.6-1.0) 1.6 mg/dL (0.6-1.0) Estimated GFR (Cockcroft-Gault) 23.7 30.7 BUN/Creatinine Ratio 9 (6-20) Glucose Level 139 mg/dL (70-99) 76 mg/dL (70-99) Calcium Level 9.7 mg/dL (8.5-10.1) 8.2 mg/dL (8.5-10.1) Magnesium Level 2.3 mg/dL (1.8-2.4) Total Bilirubin 0.7 mg/dL (0.2-1.0) Aspartate Amino Transf (AST/SGOT) 29 U/L (15-37) Alanine Aminotransferase (ALT/SGPT) 20 U/L (14-59) Alkaline Phosphatase 90 U/L (46-116) Creatine Kinase 72 U/L (26-192) Creatine Kinase MB (Mass) 1.3 ng/mL (0.0-3.6) Creatine Kinase MB Relative Index % (0-4) Troponin I Quantitative < 0.017 ng/mL (0.000-0.055) OH-Ckj-Y-Type Natriuretic Peptide 295 pg/mL (0-449) Total Protein 7.6 g/dL (6.4-8.2) Albumin 3.3 g/dL (3.4-5.0) Albumin/Globulin Ratio 0.8 (1.0-1.7) Thyroid Stimulating Hormone (TSH) 1.931 uIU/mL (0.358-3.74) Free Thyroxine 1.45 ng/dL (0.76-1.46) Urine Collection Type Unknown Urine Color Yellow Urine Clarity Clear Urine pH 6.0 Urine Specific Carmichaels 1.010 Urine Protein 100 mg/dL (NEG-TRACE) Urine Glucose (UA) Negative mg/dL (NEG) Urine Ketones (Stick) 15 mg/dL (NEG) Urine Blood Trace (NEG) Urine Nitrite Negative (NEG) Urine Bilirubin Negative (NEG) Urine Urobilinogen Dipstick 0.2 mg/dL (0.2 mg/dL) Urine Leukocyte Esterase Moderate (NEG) Urine RBC 0 /HPF (0-2) Urine WBC 20-40 /HPF (0-4) Urine Squamous Epithelial Cells Mod /LPF Urine Bacteria 0 /HPF (0-FEW) Urine Hyaline Casts Moderate /HPF Urine Mucus Mod /LPF Glucose (Fingerstick) 81 mg/dL (70-99) Laboratory Tests Test 08/19/18 11:51 08/19/18 11:57 08/19/18 19:55 08/20/18 04:10 White Blood Count 12.0 x10^3/uL (4.0-11.0) 7.5 x10^3/uL (4.0-11.0) Red Blood Count 4.64 x10^6/uL (3.50-5.40) 3.96 x10^6/uL (3.50-5.40) Hemoglobin 13.7 g/dL (12.0-15.5) 11.8 g/dL (12.0-15.5) Hematocrit 40.0 % (36.0-47.0) 34.1 % (36.0-47.0) Mean Corpuscular Volume 86 fL (79-100) 86 fL (79-100) Mean Corpuscular Hemoglobin 30 pg (25-35) 30 pg (25-35) Mean Corpuscular Hemoglobin Concent 34 g/dL (31-37) 35 g/dL (31-37) Red Cell Distribution Width 13.7 % (11.5-14.5) 13.8 % (11.5-14.5) Platelet Count 257 x10^3/uL (140-400) 209 x10^3/uL (140-400) Neutrophils (%) (Auto) 87 % (31-73) 67 % (31-73) Lymphocytes (%) (Auto) 7 % (24-48) 20 % (24-48) Monocytes (%) (Auto) 4 % (0-9) 8 % (0-9) Eosinophils (%) (Auto) 1 % (0-3) 4 % (0-3) Basophils (%) (Auto) 1 % (0-3) 1 % (0-3) Neutrophils # (Auto) 10.5 x10^3uL (1.8-7.7) 5.1 x10^3uL (1.8-7.7) Lymphocytes # (Auto) 0.8 x10^3/uL (1.0-4.8) 1.5 x10^3/uL (1.0-4.8) Monocytes # (Auto) 0.5 x10^3/uL (0.0-1.1) 0.6 x10^3/uL (0.0-1.1) Eosinophils # (Auto) 0.1 x10^3/uL (0.0-0.7) 0.3 x10^3/uL (0.0-0.7) Basophils # (Auto) 0.1 x10^3/uL (0.0-0.2) 0.1 x10^3/uL (0.0-0.2) Segmented Neutrophils % 87 % (35-66) Band Neutrophils % 1 % (0-9) Lymphocytes % 7 % (24-48) Atypical Lymphocytes % (Manual) 1 % (0-0) Monocytes % 4 % (0-10) Platelet Estimate Adequate (ADEQUATE) Large Platelets Few Prothrombin Time 13.0 SEC (11.7-14.0) Prothromb Time International Ratio 1.0 (0.8-1.1) Sodium Level 141 mmol/L (136-145) 144 mmol/L (136-145) Potassium Level 4.8 mmol/L (3.5-5.1) 4.3 mmol/L (3.5-5.1) Chloride Level 104 mmol/L (98-107) 110 mmol/L (98-107) Carbon Dioxide Level 22 mmol/L (21-32) 23 mmol/L (21-32) Anion Gap 15 (6-14) 11 (6-14) Blood Urea Nitrogen 18 mg/dL (7-20) 15 mg/dL (7-20) Creatinine 2.0 mg/dL (0.6-1.0) 1.6 mg/dL (0.6-1.0) Estimated GFR (Cockcroft-Gault) 23.7 30.7 BUN/Creatinine Ratio 9 (6-20) Glucose Level 139 mg/dL (70-99) 76 mg/dL (70-99) Calcium Level 9.7 mg/dL (8.5-10.1) 8.2 mg/dL (8.5-10.1) Magnesium Level 2.3 mg/dL (1.8-2.4) Total Bilirubin 0.7 mg/dL (0.2-1.0) Aspartate Amino Transf (AST/SGOT) 29 U/L (15-37) Alanine Aminotransferase (ALT/SGPT) 20 U/L (14-59) Alkaline Phosphatase 90 U/L (46-116) Creatine Kinase 72 U/L (26-192) Creatine Kinase MB (Mass) 1.3 ng/mL (0.0-3.6) Creatine Kinase MB Relative Index % (0-4) Troponin I Quantitative < 0.017 ng/mL (0.000-0.055) XC-Cgj-X-Type Natriuretic Peptide 295 pg/mL (0-449) Total Protein 7.6 g/dL (6.4-8.2) Albumin 3.3 g/dL (3.4-5.0) Albumin/Globulin Ratio 0.8 (1.0-1.7) Thyroid Stimulating Hormone (TSH) 1.931 uIU/mL (0.358-3.74) Free Thyroxine 1.45 ng/dL (0.76-1.46) Urine Collection Type Unknown Urine Color Yellow Urine Clarity Clear Urine pH 6.0 Urine Specific Carmichaels 1.010 Urine Protein 100 mg/dL (NEG-TRACE) Urine Glucose (UA) Negative mg/dL (NEG) Urine Ketones (Stick) 15 mg/dL (NEG) Urine Blood Trace (NEG) Urine Nitrite Negative (NEG) Urine Bilirubin Negative (NEG) Urine Urobilinogen Dipstick 0.2 mg/dL (0.2 mg/dL) Urine Leukocyte Esterase Moderate (NEG) Urine RBC 0 /HPF (0-2) Urine WBC 20-40 /HPF (0-4) Urine Squamous Epithelial Cells Mod /LPF Urine Bacteria 0 /HPF (0-FEW) Urine Hyaline Casts Moderate /HPF Urine Mucus Mod /LPF Glucose (Fingerstick) 81 mg/dL (70-99) Medications Current Medications Sodium Chloride 1,000 ml @ 1,000 mls/hr 1X ONCE IV Last administered on 08/19at 14:16; Start 08/19/18 at 13:00; Stop 08/19/18 at 13:59; Status DC Morphine Sulfate (Morphine Sulfate) 4 mg 1X ONCE IV Last administered on 08/19at 14:16; Start 08/19/18 at 14:00; Stop 08/19/18 at 14:01; Status DC Ondansetron HCl (Zofran) 4 mg PRN Q8HRS PRN IV NAUSEA/VOMITING; Start at 15:15; Stop 08/20/18 at 15:14 Morphine Sulfate (Morphine Sulfate) 2 mg PRN Q2HR PRN IV PAIN; Start 08/19/18 at 15:15; Stop 08/20/18 at 15:14 Sodium Chloride 1,000 ml @ 75 mls/hr [id number] IV Last administered on at 05:48; Start 08/19/18 at 15:08; Stop 08/20/18 at 15:07 Aspirin (Ecotrin) 81 mg DAILYAC PO ; Start 08/20/18 at 07:30 Atorvastatin Calcium (Lipitor) 20 mg QHS PO Last administered on 08/19/18at 21: 22; Start 08/19/18 at 21:00 Clopidogrel Bisulfate (Plavix) 75 mg DAILY PO ; Start 08/20/18 at 09:00; Stop 08/20/18 at 09:00; Status DC Metoprolol Tartrate (Lopressor) 25 mg BID PO Last administered on 08/19/18at 21 :22; Start 08/19/18 at 21:00 Clobetasol Propionate (Temovate) 1 lit BID TP Last administered on 08/19/18at 21:23; Start 08/19/18 at 21:00 Levothyroxine Sodium (Synthroid) 25 mcg DAILY06 PO Last administered on at 05:48; Start 08/20/18 at 06:00 Acetaminophen (Tylenol) 650 mg PRN Q6HRS PRN PO FEVER; Start 08/19/18 at 17:00 Ondansetron HCl (Zofran) 4 mg PRN Q6HRS PRN IV NAUSEA/VOMITING; Start at 17:00 Morphine Sulfate (Morphine Sulfate) 2 mg PRN Q2HR PRN IV MODERATE TO SEVERE PAIN; Start 08/19/18 at 17:00 Tramadol HCl (Ultram) 50 mg PRN Q6HRS PRN PO MILD TO MODERATE PAIN Last administered on 08/19/18at 23:07; Start 08/19/18 at 17:00 Docusate Sodium (Colace) 100 mg PRN DAILY PRN PO CONSTIPATION; Start 08/19/18 at 17:00 Enoxaparin Sodium (Lovenox 30mg Syringe) 30 mg Q24H SQ Last administered on at 21:23; Start 08/19/18 at 21:00 Ceftriaxone Sodium 1 gm/ Dextrose 50 ml @ 100 mls/hr Q24H IV ; Start 08/19/18 at 17:00; Status UNV Metronidazole 100 ml @ 100 mls/hr Q12HR IV Last administered on 08/19/18at 17: 48; Start 08/19/18 at 18:00 Ceftriaxone Sodium (Rocephin) 1 gm Q24H IVP Last administered on 08/19/18at 17: 42; Start 08/19/18 at 18:00 Lactobacillus Rhamnosus (Culturelle) 1 cap BID PO Last administered on at 21:22; Start 08/19/18 at 21:00 Alprazolam (Xanax) 0.25 mg PRN Q8HRS PRN PO ANXIETY / AGITATION Last administered on 08/20/18at 05:48; Start 08/19/18 at 17:30 Active Scripts Active Atorvastatin Calcium 20 Mg Tablet 20 Mg PO QHS Reported Omeprazole 20 Mg Capsule.dr 20 Mg PO DAILY Fluoxetine Hcl 20 Mg Capsule 1 Cap PO DAILY Atenolol 50 Mg Tablet 1 Tab PO DAILY Aspirin Ec (Aspirin) 81 Mg Tablet.dr 81 Mg PO DAILYAC Levothyroxine Sodium 25 Mcg Tablet 25 Mcg PO DAILYAC Hydrocortisone Valerate 15 Gm Oint...g. 1 Lit TP BID Clobetasol Propionate 15 Gm Oint...g. 1 Lit TP BID Vitals/I & O Vital Sign - Last 24 Hours 08/19/18 08/19/18 08/19/18 08/19/18 11:21 12:00 12:30 13:00 Temp 98.3 98.3 Pulse 90 90 82 80 Resp 26 18 16 14 B/P (MAP) 134/63 (86) 126/62 (83) 192/118 (142) Pulse Ox 100 100 100 98 O2 Delivery Room Air Room Air Room Air Room Air 08/19/18 08/19/18 08/19/18 08/19/18 13:30 14:00 14:16 15:30 Pulse 80 76 74 Resp 14 22 22 22 B/P (MAP) 99/53 (68) Pulse Ox 98 98 98 O2 Delivery Room Air Room Air Room Air Room Air 08/19/18 08/19/18 08/19/18 08/19/18 17:00 18:00 19:00 20:00 Temp 97.9 97.7 97.9 97.7 Pulse 74 78 Resp 20 18 B/P (MAP) 140/65 (90) 121/55 (77) Pulse Ox 100 97 O2 Delivery Room Air Room Air Room Air Room Air 08/19/18 08/19/18 08/19/18 08/20/18 21:22 23:00 23:07 00:17 Temp 97.7 97.7 Pulse 74 72 Resp 20 16 16 B/P (MAP) 140/65 139/67 (91) Pulse Ox 97 97 O2 Delivery Room Air Room Air Room Air 08/20/18 03:00 Temp 97.7 97.7 Pulse 65 Resp 18 B/P (MAP) 140/70 (93) Pulse Ox 97 O2 Delivery Room Air LUI GUERRERO MD Aug 20, 2018 08:08
--- NOTE | 2018-08-20 08:29 | PDOC2 ---
CONSULT Date of Consult Date of Consult DATE: 08/20/18 TIME: 08:22 Reason for Consult Reason for Consult: possible cholecystitsi Referring Physician Referring Physician: ER Identification/Chief Complaint Chief Complaint palpations Source Source: Caregiver, Chart review, Patient History of Present Illness Reason for Visit: Admitted with palpations, pt is poor historian. present and reports not feeling well, racing heart. History of afib, EMS found HR 180s, SVT vs. rapid afib. didnot give any meds, pt coverted to sinus later It was noted yesterday that she had nausea and epigastric pain--currently reports no pain or nausea Spouse reports hx of reflux--seen previously by GI, endoscopy Reports no significant change in appetite, no complaints routinely of pain no constipation or diarrhea Past Medical History Cardiovascular: AFIB, HTN, Hyperlipidemia Renal/: UTI Endocrine: Hypothyroidism Past Surgical History Past Surgical History: No pertinent history Family History Family History: Hypertension Social History No ALCOHOL: none Drugs: None Lives: with Family Current Problem List Problem List Problems Medical Problems: (1) Cholelithiasis Status: Acute (2) Intermittent palpitations Status: Acute (3) Renal failure Status: Acute Current Medications Current Medications Current Medications Sodium Chloride 1,000 ml @ 1,000 mls/hr 1X ONCE IV Last administered on 08/19at 14:16; Start 08/19/18 at 13:00; Stop 08/19/18 at 13:59; Status DC Morphine Sulfate (Morphine Sulfate) 4 mg 1X ONCE IV Last administered on 08/19at 14:16; Start 08/19/18 at 14:00; Stop 08/19/18 at 14:01; Status DC Ondansetron HCl (Zofran) 4 mg PRN Q8HRS PRN IV NAUSEA/VOMITING; Start at 15:15; Stop 08/20/18 at 15:14 Morphine Sulfate (Morphine Sulfate) 2 mg PRN Q2HR PRN IV PAIN; Start 08/19/18 at 15:15; Stop 08/20/18 at 15:14 Sodium Chloride 1,000 ml @ 75 mls/hr [id number] IV Last administered on at 05:48; Start 08/19/18 at 15:08; Stop 08/20/18 at 15:07 Aspirin (Ecotrin) 81 mg DAILYAC PO ; Start 08/20/18 at 07:30 Atorvastatin Calcium (Lipitor) 20 mg QHS PO Last administered on 08/19/18at 21: 22; Start 08/19/18 at 21:00 Clopidogrel Bisulfate (Plavix) 75 mg DAILY PO ; Start 08/20/18 at 09:00; Stop 08/20/18 at 09:00; Status DC Metoprolol Tartrate (Lopressor) 25 mg BID PO Last administered on 08/19/18at 21 :22; Start 08/19/18 at 21:00 Clobetasol Propionate (Temovate) 1 lit BID TP Last administered on 08/19/18at 21:23; Start 08/19/18 at 21:00 Levothyroxine Sodium (Synthroid) 25 mcg DAILY06 PO Last administered on at 05:48; Start 08/20/18 at 06:00 Acetaminophen (Tylenol) 650 mg PRN Q6HRS PRN PO FEVER; Start 08/19/18 at 17:00 Ondansetron HCl (Zofran) 4 mg PRN Q6HRS PRN IV NAUSEA/VOMITING; Start at 17:00 Morphine Sulfate (Morphine Sulfate) 2 mg PRN Q2HR PRN IV MODERATE TO SEVERE PAIN; Start 08/19/18 at 17:00 Tramadol HCl (Ultram) 50 mg PRN Q6HRS PRN PO MILD TO MODERATE PAIN Last administered on 08/19/18at 23:07; Start 08/19/18 at 17:00 Docusate Sodium (Colace) 100 mg PRN DAILY PRN PO CONSTIPATION; Start 08/19/18 at 17:00 Enoxaparin Sodium (Lovenox 30mg Syringe) 30 mg Q24H SQ Last administered on at 21:23; Start 08/19/18 at 21:00 Ceftriaxone Sodium 1 gm/ Dextrose 50 ml @ 100 mls/hr Q24H IV ; Start 08/19/18 at 17:00; Status UNV Metronidazole 100 ml @ 100 mls/hr Q12HR IV Last administered on 08/19/18at 17: 48; Start 08/19/18 at 18:00 Ceftriaxone Sodium (Rocephin) 1 gm Q24H IVP Last administered on 08/19/18at 17: 42; Start 08/19/18 at 18:00 Lactobacillus Rhamnosus (Culturelle) 1 cap BID PO Last administered on at 21:22; Start 08/19/18 at 21:00 Alprazolam (Xanax) 0.25 mg PRN Q8HRS PRN PO ANXIETY / AGITATION Last administered on 08/20/18at 05:48; Start 08/19/18 at 17:30 Active Scripts Active Atorvastatin Calcium 20 Mg Tablet 20 Mg PO QHS Reported Omeprazole 20 Mg Capsule.dr 20 Mg PO DAILY Fluoxetine Hcl 20 Mg Capsule 1 Cap PO DAILY Atenolol 50 Mg Tablet 1 Tab PO DAILY Aspirin Ec (Aspirin) 81 Mg Tablet.dr 81 Mg PO DAILYAC Levothyroxine Sodium 25 Mcg Tablet 25 Mcg PO DAILYAC Hydrocortisone Valerate 15 Gm Oint...g. 1 Lit TP BID Clobetasol Propionate 15 Gm Oint...g. 1 Lit TP BID Allergies Allergies: Coded Allergies: No Known Drug Allergies (Unverified , 09/28/15) ROS General: No: Chills, Other (fevers) PSYCHOLOGICAL ROS: No: Anxiety, Depression Eyes: No Blurry vision, No Double vision HEENT: No: Heacaches, Sore Throat Hematological and Lymphatic: YES: Bleeding Problems; No: Blood Clots Respiratory: No: Cough, Shortness of breath Cardiovascular: yes Palpitations Gastrointestinal: Yes Other (see hpi) Genitourinary: No Dysuria, No Hematuria Musculoskeletal: No Joint Pain, No Muscle Pain Neurological: No Numbness/Tingling, No Seizures Skin: No Pruritus, No Rash Physical Exam General: Alert, Cooperative, No acute distress HEENT: PERRLA, Mucous membr. moist/pink Lungs: Clear to auscultation, Normal air movement Heart: Regular rate, Normal S1, Normal S2, No murmurs Abdomen: Soft, Other ( ND, mild TTP epigastric) Extremities: No clubbing, No cyanosis Skin: No rashes, No breakdown Neuro: Normal speech, Sensation intact Psych/Mental Status: Mental status NL, Mood NL MUSCULOSKELETAL: No deformity, No swelling Vitals VITALS Vital Signs Date Time Temp Pulse Resp B/P (MAP) Pulse Ox O2 Delivery O2 Flow Rate FiO2 08/20/18 03:00 97.7 65 18 140/70 (93) 97 Room Air 97.7 Labs Labs Laboratory Tests Test 08/19/18 11:51 08/19/18 11:57 08/19/18 19:55 08/20/18 04:10 White Blood Count 12.0 x10^3/uL (4.0-11.0) 7.5 x10^3/uL (4.0-11.0) Red Blood Count 4.64 x10^6/uL (3.50-5.40) 3.96 x10^6/uL (3.50-5.40) Hemoglobin 13.7 g/dL (12.0-15.5) 11.8 g/dL (12.0-15.5) Hematocrit 40.0 % (36.0-47.0) 34.1 % (36.0-47.0) Mean Corpuscular Volume 86 fL (79-100) 86 fL (79-100) Mean Corpuscular Hemoglobin 30 pg (25-35) 30 pg (25-35) Mean Corpuscular Hemoglobin Concent 34 g/dL (31-37) 35 g/dL (31-37) Red Cell Distribution Width 13.7 % (11.5-14.5) 13.8 % (11.5-14.5) Platelet Count 257 x10^3/uL (140-400) 209 x10^3/uL (140-400) Neutrophils (%) (Auto) 87 % (31-73) 67 % (31-73) Lymphocytes (%) (Auto) 7 % (24-48) 20 % (24-48) Monocytes (%) (Auto) 4 % (0-9) 8 % (0-9) Eosinophils (%) (Auto) 1 % (0-3) 4 % (0-3) Basophils (%) (Auto) 1 % (0-3) 1 % (0-3) Neutrophils # (Auto) 10.5 x10^3uL (1.8-7.7) 5.1 x10^3uL (1.8-7.7) Lymphocytes # (Auto) 0.8 x10^3/uL (1.0-4.8) 1.5 x10^3/uL (1.0-4.8) Monocytes # (Auto) 0.5 x10^3/uL (0.0-1.1) 0.6 x10^3/uL (0.0-1.1) Eosinophils # (Auto) 0.1 x10^3/uL (0.0-0.7) 0.3 x10^3/uL (0.0-0.7) Basophils # (Auto) 0.1 x10^3/uL (0.0-0.2) 0.1 x10^3/uL (0.0-0.2) Segmented Neutrophils % 87 % (35-66) Band Neutrophils % 1 % (0-9) Lymphocytes % 7 % (24-48) Atypical Lymphocytes % (Manual) 1 % (0-0) Monocytes % 4 % (0-10) Platelet Estimate Adequate (ADEQUATE) Large Platelets Few Prothrombin Time 13.0 SEC (11.7-14.0) Prothromb Time International Ratio 1.0 (0.8-1.1) Sodium Level 141 mmol/L (136-145) 144 mmol/L (136-145) Potassium Level 4.8 mmol/L (3.5-5.1) 4.3 mmol/L (3.5-5.1) Chloride Level 104 mmol/L (98-107) 110 mmol/L (98-107) Carbon Dioxide Level 22 mmol/L (21-32) 23 mmol/L (21-32) Anion Gap 15 (6-14) 11 (6-14) Blood Urea Nitrogen 18 mg/dL (7-20) 15 mg/dL (7-20) Creatinine 2.0 mg/dL (0.6-1.0) 1.6 mg/dL (0.6-1.0) Estimated GFR (Cockcroft-Gault) 23.7 30.7 BUN/Creatinine Ratio 9 (6-20) Glucose Level 139 mg/dL (70-99) 76 mg/dL (70-99) Calcium Level 9.7 mg/dL (8.5-10.1) 8.2 mg/dL (8.5-10.1) Magnesium Level 2.3 mg/dL (1.8-2.4) Total Bilirubin 0.7 mg/dL (0.2-1.0) Aspartate Amino Transf (AST/SGOT) 29 U/L (15-37) Alanine Aminotransferase (ALT/SGPT) 20 U/L (14-59) Alkaline Phosphatase 90 U/L (46-116) Creatine Kinase 72 U/L (26-192) Creatine Kinase MB (Mass) 1.3 ng/mL (0.0-3.6) Creatine Kinase MB Relative Index % (0-4) Troponin I Quantitative < 0.017 ng/mL (0.000-0.055) EU-Yol-X-Type Natriuretic Peptide 295 pg/mL (0-449) Total Protein 7.6 g/dL (6.4-8.2) Albumin 3.3 g/dL (3.4-5.0) Albumin/Globulin Ratio 0.8 (1.0-1.7) Thyroid Stimulating Hormone (TSH) 1.931 uIU/mL (0.358-3.74) Free Thyroxine 1.45 ng/dL (0.76-1.46) Urine Collection Type Unknown Urine Color Yellow Urine Clarity Clear Urine pH 6.0 Urine Specific [place] 1.010 Urine Protein 100 mg/dL (NEG-TRACE) Urine Glucose (UA) Negative mg/dL (NEG) Urine Ketones (Stick) 15 mg/dL (NEG) Urine Blood Trace (NEG) Urine Nitrite Negative (NEG) Urine Bilirubin Negative (NEG) Urine Urobilinogen Dipstick 0.2 mg/dL (0.2 mg/dL) Urine Leukocyte Esterase Moderate (NEG) Urine RBC 0 /HPF (0-2) Urine WBC 20-40 /HPF (0-4) Urine Squamous Epithelial Cells Mod /LPF Urine Bacteria 0 /HPF (0-FEW) Urine Hyaline Casts Moderate /HPF Urine Mucus Mod /LPF Glucose (Fingerstick) 81 mg/dL (70-99) Laboratory Tests Test 08/19/18 11:51 08/19/18 11:57 08/19/18 19:55 08/20/18 04:10 White Blood Count 12.0 x10^3/uL (4.0-11.0) 7.5 x10^3/uL (4.0-11.0) Red Blood Count 4.64 x10^6/uL (3.50-5.40) 3.96 x10^6/uL (3.50-5.40) Hemoglobin 13.7 g/dL (12.0-15.5) 11.8 g/dL (12.0-15.5) Hematocrit 40.0 % (36.0-47.0) 34.1 % (36.0-47.0) Mean Corpuscular Volume 86 fL (79-100) 86 fL (79-100) Mean Corpuscular Hemoglobin 30 pg (25-35) 30 pg (25-35) Mean Corpuscular Hemoglobin Concent 34 g/dL (31-37) 35 g/dL (31-37) Red Cell Distribution Width 13.7 % (11.5-14.5) 13.8 % (11.5-14.5) Platelet Count 257 x10^3/uL (140-400) 209 x10^3/uL (140-400) Neutrophils (%) (Auto) 87 % (31-73) 67 % (31-73) Lymphocytes (%) (Auto) 7 % (24-48) 20 % (24-48) Monocytes (%) (Auto) 4 % (0-9) 8 % (0-9) Eosinophils (%) (Auto) 1 % (0-3) 4 % (0-3) Basophils (%) (Auto) 1 % (0-3) 1 % (0-3) Neutrophils # (Auto) 10.5 x10^3uL (1.8-7.7) 5.1 x10^3uL (1.8-7.7) Lymphocytes # (Auto) 0.8 x10^3/uL (1.0-4.8) 1.5 x10^3/uL (1.0-4.8) Monocytes # (Auto) 0.5 x10^3/uL (0.0-1.1) 0.6 x10^3/uL (0.0-1.1) Eosinophils # (Auto) 0.1 x10^3/uL (0.0-0.7) 0.3 x10^3/uL (0.0-0.7) Basophils # (Auto) 0.1 x10^3/uL (0.0-0.2) 0.1 x10^3/uL (0.0-0.2) Segmented Neutrophils % 87 % (35-66) Band Neutrophils % 1 % (0-9) Lymphocytes % 7 % (24-48) Atypical Lymphocytes % (Manual) 1 % (0-0) Monocytes % 4 % (0-10) Platelet Estimate Adequate (ADEQUATE) Large Platelets Few Prothrombin Time 13.0 SEC (11.7-14.0) Prothromb Time International Ratio 1.0 (0.8-1.1) Sodium Level 141 mmol/L (136-145) 144 mmol/L (136-145) Potassium Level 4.8 mmol/L (3.5-5.1) 4.3 mmol/L (3.5-5.1) Chloride Level 104 mmol/L (98-107) 110 mmol/L (98-107) Carbon Dioxide Level 22 mmol/L (21-32) 23 mmol/L (21-32) Anion Gap 15 (6-14) 11 (6-14) Blood Urea Nitrogen 18 mg/dL (7-20) 15 mg/dL (7-20) Creatinine 2.0 mg/dL (0.6-1.0) 1.6 mg/dL (0.6-1.0) Estimated GFR (Cockcroft-Gault) 23.7 30.7 BUN/Creatinine Ratio 9 (6-20) Glucose Level 139 mg/dL (70-99) 76 mg/dL (70-99) Calcium Level 9.7 mg/dL (8.5-10.1) 8.2 mg/dL (8.5-10.1) Magnesium Level 2.3 mg/dL (1.8-2.4) Total Bilirubin 0.7 mg/dL (0.2-1.0) Aspartate Amino Transf (AST/SGOT) 29 U/L (15-37) Alanine Aminotransferase (ALT/SGPT) 20 U/L (14-59) Alkaline Phosphatase 90 U/L (46-116) Creatine Kinase 72 U/L (26-192) Creatine Kinase MB (Mass) 1.3 ng/mL (0.0-3.6) Creatine Kinase MB Relative Index % (0-4) Troponin I Quantitative < 0.017 ng/mL (0.000-0.055) RH-Ohg-T-Type Natriuretic Peptide 295 pg/mL (0-449) Total Protein 7.6 g/dL (6.4-8.2) Albumin 3.3 g/dL (3.4-5.0) Albumin/Globulin Ratio 0.8 (1.0-1.7) Thyroid Stimulating Hormone (TSH) 1.931 uIU/mL (0.358-3.74) Free Thyroxine 1.45 ng/dL (0.76-1.46) Urine Collection Type Unknown Urine Color Yellow Urine Clarity Clear Urine pH 6.0 Urine Specific [place] 1.010 Urine Protein 100 mg/dL (NEG-TRACE) Urine Glucose (UA) Negative mg/dL (NEG) Urine Ketones (Stick) 15 mg/dL (NEG) Urine Blood Trace (NEG) Urine Nitrite Negative (NEG) Urine Bilirubin Negative (NEG) Urine Urobilinogen Dipstick 0.2 mg/dL (0.2 mg/dL) Urine Leukocyte Esterase Moderate (NEG) Urine RBC 0 /HPF (0-2) Urine WBC 20-40 /HPF (0-4) Urine Squamous Epithelial Cells Mod /LPF Urine Bacteria 0 /HPF (0-FEW) Urine Hyaline Casts Moderate /HPF Urine Mucus Mod /LPF Glucose (Fingerstick) 81 mg/dL (70-99) Assessment/Plan Assessment/Plan cholelithiasis, possible cholecystitis EMMANUEL HTN Afib-on plavix per med list LFTS ok will check hida for cholecystitis poor surgical candidate RJ MCCARTHY LEAD PRINTER Aug 20, 2018 08:29
[2018-08-20] MEDS ORDERED: CLOPIDOGREL BISULFATE 75 MG TABLET PO SCH (09:00)
--- NOTE | 2018-08-20 09:04 | PDOC2 ---
GI CONSULT Reason For Consult: Abd pain HPI: HPI: 83 y/o female w/ h/o dementia. History mostly from [place]. He says she was brought to the hospital for c/o racing heart - chart indicates some question of SVT or A Fib, now resolved. Might have had abdominal pain and we were asked to see for same. Abd pain, if ever present, has now resolved. Cholelithiasis on imaging, surgery also following, HIDA ordered. H/o GERD on omeprazole QD. No dysphagia. No n/v. Perhaps some decreased appetite, but then mentions she "ate really well" the other day. Typically no issues w/ abd pain. No diarrhea or constipation. No hematochezia or melena. No weight loss. Fell a couple weeks ago and hurt her arm, was taking Tylenol but no NSAIDs; however, takes ASA 81mg QD ?and Plavix. Recently treated w/ atbx for UTI. Had EGD @ [place] in 10/2017, reports esophagus was dilated. Had colonoscopy @ [place] sometime last year, reportedly normal. No GB, liver, or pancreas history. PMH: PMH: A Fib, dementia, TIA, CKD, UTI, HLD, hypothyroidism, finger surgery FH: Family History: No pertinent hx Social History: Smoke: No ALCOHOL: none Drugs: None ROS: Obtained per per HPI. Vitals: Vitals: Vital Signs Date Time Temp Pulse Resp B/P (MAP) Pulse Ox O2 Delivery O2 Flow Rate FiO2 08/20/18 07:00 96.4 68 18 84/63 (70) 98 Room Air 96.4 Labs: Labs: Laboratory Tests Test 08/19/18 11:51 08/19/18 11:57 08/19/18 19:55 08/20/18 04:10 White Blood Count 12.0 x10^3/uL (4.0-11.0) 7.5 x10^3/uL (4.0-11.0) Red Blood Count 4.64 x10^6/uL (3.50-5.40) 3.96 x10^6/uL (3.50-5.40) Hemoglobin 13.7 g/dL (12.0-15.5) 11.8 g/dL (12.0-15.5) Hematocrit 40.0 % (36.0-47.0) 34.1 % (36.0-47.0) Mean Corpuscular Volume 86 fL (79-100) 86 fL (79-100) Mean Corpuscular Hemoglobin 30 pg (25-35) 30 pg (25-35) Mean Corpuscular Hemoglobin Concent 34 g/dL (31-37) 35 g/dL (31-37) Red Cell Distribution Width 13.7 % (11.5-14.5) 13.8 % (11.5-14.5) Platelet Count 257 x10^3/uL (140-400) 209 x10^3/uL (140-400) Neutrophils (%) (Auto) 87 % (31-73) 67 % (31-73) Lymphocytes (%) (Auto) 7 % (24-48) 20 % (24-48) Monocytes (%) (Auto) 4 % (0-9) 8 % (0-9) Eosinophils (%) (Auto) 1 % (0-3) 4 % (0-3) Basophils (%) (Auto) 1 % (0-3) 1 % (0-3) Neutrophils # (Auto) 10.5 x10^3uL (1.8-7.7) 5.1 x10^3uL (1.8-7.7) Lymphocytes # (Auto) 0.8 x10^3/uL (1.0-4.8) 1.5 x10^3/uL (1.0-4.8) Monocytes # (Auto) 0.5 x10^3/uL (0.0-1.1) 0.6 x10^3/uL (0.0-1.1) Eosinophils # (Auto) 0.1 x10^3/uL (0.0-0.7) 0.3 x10^3/uL (0.0-0.7) Basophils # (Auto) 0.1 x10^3/uL (0.0-0.2) 0.1 x10^3/uL (0.0-0.2) Segmented Neutrophils % 87 % (35-66) Band Neutrophils % 1 % (0-9) Lymphocytes % 7 % (24-48) Atypical Lymphocytes % (Manual) 1 % (0-0) Monocytes % 4 % (0-10) Platelet Estimate Adequate (ADEQUATE) Large Platelets Few Prothrombin Time 13.0 SEC (11.7-14.0) Prothromb Time International Ratio 1.0 (0.8-1.1) Sodium Level 141 mmol/L (136-145) 144 mmol/L (136-145) Potassium Level 4.8 mmol/L (3.5-5.1) 4.3 mmol/L (3.5-5.1) Chloride Level 104 mmol/L (98-107) 110 mmol/L (98-107) Carbon Dioxide Level 22 mmol/L (21-32) 23 mmol/L (21-32) Anion Gap 15 (6-14) 11 (6-14) Blood Urea Nitrogen 18 mg/dL (7-20) 15 mg/dL (7-20) Creatinine 2.0 mg/dL (0.6-1.0) 1.6 mg/dL (0.6-1.0) Estimated GFR (Cockcroft-Gault) 23.7 30.7 BUN/Creatinine Ratio 9 (6-20) Glucose Level 139 mg/dL (70-99) 76 mg/dL (70-99) Calcium Level 9.7 mg/dL (8.5-10.1) 8.2 mg/dL (8.5-10.1) Magnesium Level 2.3 mg/dL (1.8-2.4) Total Bilirubin 0.7 mg/dL (0.2-1.0) Aspartate Amino Transf (AST/SGOT) 29 U/L (15-37) Alanine Aminotransferase (ALT/SGPT) 20 U/L (14-59) Alkaline Phosphatase 90 U/L (46-116) Creatine Kinase 72 U/L (26-192) Creatine Kinase MB (Mass) 1.3 ng/mL (0.0-3.6) Creatine Kinase MB Relative Index % (0-4) Troponin I Quantitative < 0.017 ng/mL (0.000-0.055) VY-Yld-M-Type Natriuretic Peptide 295 pg/mL (0-449) Total Protein 7.6 g/dL (6.4-8.2) Albumin 3.3 g/dL (3.4-5.0) Albumin/Globulin Ratio 0.8 (1.0-1.7) Thyroid Stimulating Hormone (TSH) 1.931 uIU/mL (0.358-3.74) Free Thyroxine 1.45 ng/dL (0.76-1.46) Urine Collection Type Unknown Urine Color Yellow Urine Clarity Clear Urine pH 6.0 Urine Specific [place] 1.010 Urine Protein 100 mg/dL (NEG-TRACE) Urine Glucose (UA) Negative mg/dL (NEG) Urine Ketones (Stick) 15 mg/dL (NEG) Urine Blood Trace (NEG) Urine Nitrite Negative (NEG) Urine Bilirubin Negative (NEG) Urine Urobilinogen Dipstick 0.2 mg/dL (0.2 mg/dL) Urine Leukocyte Esterase Moderate (NEG) Urine RBC 0 /HPF (0-2) Urine WBC 20-40 /HPF (0-4) Urine Squamous Epithelial Cells Mod /LPF Urine Bacteria 0 /HPF (0-FEW) Urine Hyaline Casts Moderate /HPF Urine Mucus Mod /LPF Glucose (Fingerstick) 81 mg/dL (70-99) Allergies: Coded Allergies: No Known Drug Allergies (Unverified , 09/28/15) Medications: Current Medications Medications (Trade) Dose Ordered Sig/Aly Route PRN Reason Start Time Stop Time Status Last Admin Dose Admin Sodium Chloride 1,000 ml @ 1,000 mls/hr 1X ONCE IV 08/19/18 13:00 08/19/18 13:59 DC 08/19/18 14:16 Morphine Sulfate (Morphine Sulfate) 4 mg 1X ONCE IV 08/19/18 14:00 08/19/18 14:01 DC 08/19/18 14:16 Sodium Chloride 1,000 ml @ 75 mls/hr [id number] IV 08/19/18 15:08 08/20/18 15:07 08/20/18 05:48 Atorvastatin Calcium (Lipitor) 20 mg QHS PO 08/19/18 21:00 08/19/18 21:22 Metoprolol Tartrate (Lopressor) 25 mg BID PO 08/19/18 21:00 08/19/18 21:22 Clobetasol Propionate (Temovate) 1 nereida BID TP 08/19/18 21:00 08/19/18 21:23 Levothyroxine Sodium (Synthroid) 25 mcg DAILY06 PO 08/20/18 06:00 08/20/18 05:48 Tramadol HCl (Ultram) 50 mg PRN Q6HRS PRN PO MILD TO MODERATE PAIN 08/19/18 17:00 08/19/18 23:07 Enoxaparin Sodium (Lovenox 30mg Syringe) 30 mg Q24H SQ 08/19/18 21:00 08/19/18 21:23 Metronidazole 100 ml @ 100 mls/hr Q12HR IV 08/19/18 18:00 08/19/18 17:48 Ceftriaxone Sodium (Rocephin) 1 gm Q24H IVP 08/19/18 18:00 08/19/18 17:42 Lactobacillus Rhamnosus (Culturelle) 1 cap BID PO 08/19/18 21:00 08/19/18 21:22 Alprazolam (Xanax) 0.25 mg PRN Q8HRS PRN PO ANXIETY / AGITATION 08/19/18 17:30 08/20/18 05:48 Imaging: Imaging: CXR IMPRESSION: No acute cardiopulmonary abnormality is detected. CT A/P IMPRESSION: 1. No acute abdominal or pelvic abnormality. 2. Sigmoid colon diverticulosis without diverticulitis. 3. Cholelithiasis. RUQ US Impression: Small gallstones are seen near the gallbladder neck. Borderline gallbladder wall thickening is seen. No pericholecystic fluid is identified. Examination is considered equivocal for acute cystitis. If persistent concern for cholecystitis, nuclear medicine hepatic biliary scan could be performed. CBD 3mm. PE: GEN: NAD HEENT: Atraumatic, PERRL LUNGS: CTAB HEART: RRR ABD: NABS, S/ND, ?mild/vague periumbilical discomfort EXTREMITY: No edema SKIN: No rashes, no jaundice NEURO/PSYCH: confused A/P: A/P: SVT vs A Fib - resolved ?abd pain - resolved Cholelithiasis GERD - on PPI, EGD earlier this year CRC screen - UTD Normocytic anemia - on ASA and Plavix CKD/EMMANUEL Recent UTI -- Surgery following, await PIPIDA. Continue PPI, request records of recent EGD and colonoscopy. DELLA SKINNER Aug 20, 2018 09:04
[2018-08-20 11:00] VITALS: BP 124/56
--- NOTE | 2018-08-20 11:18 | PDOC2 ---
LINDA TARIQ STAFF MECHANICAL ENGINEER 08/20/18 1118: CARDIAC CONSULT DATE OF CONSULT Date of Consult DATE: 08/20/18 TIME: 11:11 REASON FOR CONSULT Reason for Consult: Rapid AFIB REFERRING PHYSICIAN Referring Physician: Dr. Muse SOURCE Source: Caregiver, Chart review HISTORY OF PRESENT ILLNESS HISTORY OF PRESENT ILLNESS This is a 83 yo female, with a history of PAFIB, who presented secondary to palpitations and abdominal pain. HPI limited due to dementia. History obtained from and daughter. Due to nausea and vomiting, patient did not take her atenolol yesterday morning. Patient normall experience palpiations and is generally able to have symptoms resolve within an hour without intervention. Yesterday, symptoms persists so EMS was called. Patient reportedly noted to be in SVT with a HR in the 180's, per EMS. Patient spontaneously converted to SR without intervention. Upon arrival to ED, further imaging notable for cholelithiasis. EKG shows SR with a HR in the 80's. PAST MEDICAL HISTORY Cardiovascular: AFIB (paroxysmal), HTN, Hyperlipidemia Pulmonary: No pertinent hx CENTRAL NERVOUS SYSTEM: Dementia GI: GERD Heme/Onc: No pertinent hx Hepatobiliary: No pertinent hx Psych: Anxiety Musculoskeletal: Osteoarthritis Rheumatologic: No pertinent hx Infectious disease: No pertinent hx ENT: No pertinent hx Renal/: Chronic renal insuff, UTI Endocrine: Hypothyroidism, Osteoporosis Dermatology: No pertinent hx PAST SURGICAL HISTORY Past Surgical History: No pertinent history FAMILY HISTORY Family History: Coronary Artery Disease (brother), Other (dementia- mother) SOCIAL HISTORY Smoke: No ALCOHOL: none Drugs: None Lives: with Family CURRENT MEDICATIONS CURRENT MEDICATIONS Current Medications Medications (Trade) Dose Ordered Sig/Aly Route PRN Reason Start Time Stop Time Status Last Admin Dose Admin Sodium Chloride 1,000 ml @ 1,000 mls/hr 1X ONCE IV 08/19/18 13:00 08/19/18 13:59 DC 08/19/18 14:16 Morphine Sulfate (Morphine Sulfate) 4 mg 1X ONCE IV 08/19/18 14:00 08/19/18 14:01 DC 08/19/18 14:16 Sodium Chloride 1,000 ml @ 75 mls/hr [id number] IV 08/19/18 15:08 08/20/18 15:07 08/20/18 05:48 Atorvastatin Calcium (Lipitor) 20 mg QHS PO 08/19/18 21:00 08/19/18 21:22 Metoprolol Tartrate (Lopressor) 25 mg BID PO 08/19/18 21:00 08/19/18 21:22 Clobetasol Propionate (Temovate) 1 nereida BID TP 08/19/18 21:00 08/19/18 21:23 Levothyroxine Sodium (Synthroid) 25 mcg DAILY06 PO 08/20/18 06:00 08/20/18 05:48 Tramadol HCl (Ultram) 50 mg PRN Q6HRS PRN PO MILD TO MODERATE PAIN 08/19/18 17:00 08/19/18 23:07 Enoxaparin Sodium (Lovenox 30mg Syringe) 30 mg Q24H SQ 08/19/18 21:00 08/19/18 21:23 Metronidazole 100 ml @ 100 mls/hr Q12HR IV 08/19/18 18:00 08/19/18 17:48 Ceftriaxone Sodium (Rocephin) 1 gm Q24H IVP 08/19/18 18:00 08/19/18 17:42 Lactobacillus Rhamnosus (Culturelle) 1 cap BID PO 08/19/18 21:00 08/19/18 21:22 Alprazolam (Xanax) 0.25 mg PRN Q8HRS PRN PO ANXIETY / AGITATION 08/19/18 17:30 08/20/18 05:48 ALLERGIES ALLERGIES: Coded Allergies: No Known Drug Allergies (Unverified , 09/28/15) ROS Review of System limited due to dementia PHYSICAL EXAM General: Alert, Cooperative, No acute distress, Other (oriented to self only) HEENT: Atraumatic, Mucous membr. moist/pink Lungs: Clear to auscultation, Normal air movement Heart: Regular rate, Normal S1, Normal S2 Abdomen: Soft, No tenderness Extremities: No edema, Normal pulses Skin: No breakdown, No significant lesion Neuro: Normal speech, Sensation intact Psych/Mental Status: Mental status NL, Mood NL MUSCULOSKELETAL: Osteoarthritic changes both hands VITALS VITALS Vital Signs Date Time Temp Pulse Resp B/P (MAP) Pulse Ox O2 Delivery O2 Flow Rate FiO2 08/20/18 07:45 Room Air 08/20/18 07:00 96.4 68 18 84/63 (70) 98 96.4 LABS Lab: Laboratory Tests Test 08/19/18 11:51 10/31/18 11:57 08/19/18 19:55 08/20/18 04:10 White Blood Count 12.0 x10^3/uL (4.0-11.0) 7.5 x10^3/uL (4.0-11.0) Red Blood Count 4.64 x10^6/uL (3.50-5.40) 3.96 x10^6/uL (3.50-5.40) Hemoglobin 13.7 g/dL (12.0-15.5) 11.8 g/dL (12.0-15.5) Hematocrit 40.0 % (36.0-47.0) 34.1 % (36.0-47.0) Mean Corpuscular Volume 86 fL (79-100) 86 fL (79-100) Mean Corpuscular Hemoglobin 30 pg (25-35) 30 pg (25-35) Mean Corpuscular Hemoglobin Concent 34 g/dL (31-37) 35 g/dL (31-37) Red Cell Distribution Width 13.7 % (11.5-14.5) 13.8 % (11.5-14.5) Platelet Count 257 x10^3/uL (140-400) 209 x10^3/uL (140-400) Neutrophils (%) (Auto) 87 % (31-73) 67 % (31-73) Lymphocytes (%) (Auto) 7 % (24-48) 20 % (24-48) Monocytes (%) (Auto) 4 % (0-9) 8 % (0-9) Eosinophils (%) (Auto) 1 % (0-3) 4 % (0-3) Basophils (%) (Auto) 1 % (0-3) 1 % (0-3) Neutrophils # (Auto) 10.5 x10^3uL (1.8-7.7) 5.1 x10^3uL (1.8-7.7) Lymphocytes # (Auto) 0.8 x10^3/uL (1.0-4.8) 1.5 x10^3/uL (1.0-4.8) Monocytes # (Auto) 0.5 x10^3/uL (0.0-1.1) 0.6 x10^3/uL (0.0-1.1) Eosinophils # (Auto) 0.1 x10^3/uL (0.0-0.7) 0.3 x10^3/uL (0.0-0.7) Basophils # (Auto) 0.1 x10^3/uL (0.0-0.2) 0.1 x10^3/uL (0.0-0.2) Segmented Neutrophils % 87 % (35-66) Band Neutrophils % 1 % (0-9) Lymphocytes % 7 % (24-48) Atypical Lymphocytes % (Manual) 1 % (0-0) Monocytes % 4 % (0-10) Platelet Estimate Adequate (ADEQUATE) Large Platelets Few Prothrombin Time 13.0 SEC (11.7-14.0) Prothromb Time International Ratio 1.0 (0.8-1.1) Sodium Level 141 mmol/L (136-145) 144 mmol/L (136-145) Potassium Level 4.8 mmol/L (3.5-5.1) 4.3 mmol/L (3.5-5.1) Chloride Level 104 mmol/L (98-107) 110 mmol/L (98-107) Carbon Dioxide Level 22 mmol/L (21-32) 23 mmol/L (21-32) Anion Gap 15 (6-14) 11 (6-14) Blood Urea Nitrogen 18 mg/dL (7-20) 15 mg/dL (7-20) Creatinine 2.0 mg/dL (0.6-1.0) 1.6 mg/dL (0.6-1.0) Estimated GFR (Cockcroft-Gault) 23.7 30.7 BUN/Creatinine Ratio 9 (6-20) Glucose Level 139 mg/dL (70-99) 76 mg/dL (70-99) Calcium Level 9.7 mg/dL (8.5-10.1) 8.2 mg/dL (8.5-10.1) Magnesium Level 2.3 mg/dL (1.8-2.4) Total Bilirubin 0.7 mg/dL (0.2-1.0) Aspartate Amino Transf (AST/SGOT) 29 U/L (15-37) Alanine Aminotransferase (ALT/SGPT) 20 U/L (14-59) Alkaline Phosphatase 90 U/L (46-116) Creatine Kinase 72 U/L (26-192) Creatine Kinase MB (Mass) 1.3 ng/mL (0.0-3.6) Creatine Kinase MB Relative Index % (0-4) Troponin I Quantitative < 0.017 ng/mL (0.000-0.055) XH-Gbn-B-Type Natriuretic Peptide 295 pg/mL (0-449) Total Protein 7.6 g/dL (6.4-8.2) Albumin 3.3 g/dL (3.4-5.0) Albumin/Globulin Ratio 0.8 (1.0-1.7) Thyroid Stimulating Hormone (TSH) 1.931 uIU/mL (0.358-3.74) Free Thyroxine 1.45 ng/dL (0.76-1.46) Urine Collection Type Unknown Urine Color Yellow Urine Clarity Clear Urine pH 6.0 Urine Specific [place] 1.010 Urine Protein 100 mg/dL (NEG-TRACE) Urine Glucose (UA) Negative mg/dL (NEG) Urine Ketones (Stick) 15 mg/dL (NEG) Urine Blood Trace (NEG) Urine Nitrite Negative (NEG) Urine Bilirubin Negative (NEG) Urine Urobilinogen Dipstick 0.2 mg/dL (0.2 mg/dL) Urine Leukocyte Esterase Moderate (NEG) Urine RBC 0 /HPF (0-2) Urine WBC 20-40 /HPF (0-4) Urine Squamous Epithelial Cells Mod /LPF Urine Bacteria 0 /HPF (0-FEW) Urine Hyaline Casts Moderate /HPF Urine Mucus Mod /LPF Glucose (Fingerstick) 81 mg/dL (70-99) ASSESSMENT/PLAN ASSESSMENT/PLAN 1. PAFIB with RVR; secondary to combination of missed rate control therapy and nausea/vomiting with cholelithiasis, possible cholecystitis. Presently SR with controlled rate. Telemetry noted short bursts of AFIB overnight. 2. Hypertension;controlled 3. Hyperlipidemia; statin 4. Cholelithiasis: GI and surgery team following. HIDA pending 5. CKD; stable 6. Hypothyroidism; TSH WNL 7. Dementia; moderately advanced 8. Anxiety; treatment as per PCP Recommendations Metoprolol for rate control ASA for stroke prevention. Patient poor candidate for OAC given increased risk for falls. (family reporting multiple recent falls and was taken off of Plavix due to falls) Check echo to assess LV function/valvular integrity Supportive care from a CV standpoint Follow surgery/GI recs. Could consider outpatient event monitor if patient could tolerate. RASHAD FUCHS MD 08/21/18 0946: CARDIAC CONSULT ASSESSMENT/PLAN ASSESSMENT/PLAN Patient seen and examined 08/21/18. Agree with FIELD NURSE's assessment and plan. Patient with history of paroxysmal atrial fibrillation presenting with rapid ventricular response, presently back in sinus rhythm. 2-D echo showed normal LV systolic function. She is a poor candidate for long-term anticoagulation due to fall risk. Continue current medications including metoprolol. Thank you for your consultation. LINDA TARIQ APRN Aug 20, 2018 11:18 RASHAD FUCHS MD Aug 21, 2018 09:46
--- NOTE | 2018-08-20 11:51 | CARD ---
MR#: [id number] Date of Study: 08/20/2018 Ordering Physician: SCARLETT MARX, Referring Physician: SCARLETT MARX, Tech: Emily Chacon LISSY APPROVED REPORT EXAM: Two-dimensional and M-mode echocardiogram with Doppler and color Doppler. Other Information Quality : AverageHR: 60bpm Rhythm : Atrial Fibrillation INDICATION Arrhythmia 2D DIMENSIONS RVDd1.9 (2.9-3.5cm)Left Atrium(2D)2.4 (1.6-4.0cm) IVSd0.8 (0.7-1.1cm)Aortic Root(2D)2.5 (2.0-3.7cm) LVDd3.8 (3.9-5.9cm)LVOT Diameter1.8 (1.8-2.4cm) PWd0.9 (0.7-1.1cm)LVDs2.7 (2.5-4.0cm) FS (%) 27.5 %SV32.5 ml LVEF(%)54.2 (>50%) M-Mode DIMENSIONS Left Atrium(MM)2.73 (2.5-4.0cm)Aortic Root2.98 (2.2-3.7cm) Aortic Valve AoV Peak Miguel.102.5cm/sAoV VTI26.1cm AO Peak GR.4.2mmHgLVOT Peak Miguel.81.1cm/s AO Mean GR.3mmHgAVA (VMAX)1.91cm2 BREANNA (VTI)2.62vd6LQ P 1/2 [id number] Mitral Valve MV E Xqkbuduv27.0cm/sMV E Peak Gr.3mmHg MV DECEL [id number] A Hqmyneqm90.3cm/s MV E Mean Gr.1mmHgE/A Ratio1.1 MV A [id number] Pulmonary Valve PV Peak Whtfdych72.0cm/s Tricuspid Valve TR P. Puqcrfbd638qj/sRAP [id number] TR Peak Gr.07pqPbPLUJ53scUd LEFT VENTRICLE The left ventricle is normal size. There is normal left ventricular wall thickness. The left ventricu lar systolic function is normal. The Ejection Fraction is 55-60%. There is normal LV segmental wall m otion. Transmitral Doppler flow pattern is Grade II-pseudonormal filling dynamics. RIGHT VENTRICLE The right ventricle is normal size. There is normal right ventricular wall thickness. The right ventr icular systolic function is normal. ATRIA The left atrium size is normal. The right atrium size is normal. The interatrial septum is intact wit h no evidence for an atrial septal defect or patent foramen ovale as noted on 2-D or Doppler imaging. AORTIC VALVE The aortic valve is calcified but opens well. The aortic valve is trileaflet. Doppler and Color Flow revealed mild aortic regurgitation. There is no significant aortic valvular stenosis. MITRAL VALVE The mitral valve is normal in structure and function. There is no evidence of mitral valve prolapse. There is no mitral valve stenosis. Doppler and Color-flow revealed trace mitral regurgitation. TRICUSPID VALVE The tricuspid valve is normal in structure and function. Doppler and Color Flow revealed trace tricus pid regurgitation. The PA pressure was estimated at 28 mmHg. There is no tricuspid valve prolapse or vegetation. There is no tricuspid valve stenosis. PULMONIC VALVE The pulmonary valve is normal in structure and function. Doppler and Color Flow revealed trace pulmon ic valvular regurgitation. There is no pulmonic valvular stenosis. GREAT VESSELS The aortic root is normal in size. The ascending aorta is Mildly dilated at 3.7 cm2. PERICARDIAL EFFUSION There is no evidence of significant pericardial effusion. Critical Notification Critical Value: No <Conclusion> The left ventricular systolic function is normal. The Ejection Fraction is 55-60%. There is normal LV segmental wall motion. Mild aortic regurgitation. Trace mitral regurgitation. Trace tricuspid regurgitation. The PA pressure was estimated at 28 mmHg. There is no evidence of significant pericardial effusion. Signed by : Adam Herring, Electronically Approved : 08/20/2018 11:50:46
[2018-08-20] MEDS: ASPIRIN ENTERIC COATED 81 MG TABLET.DR. PO SCH (12:39)
[2018-08-20] MEDS: METOPROLOL TART IMMED RELEASE 25 MG TABLET. PO SCH ×2 (12:39→21:00)
[2018-08-20] MEDS: LACTOBACILLUS RHAMNOSUS GG 1 CAPSULE. PO SCH ×2 (12:39→20:56)
[2018-08-20] MEDS: CLOBETASOL EMOLLIENT 0.05% TOPICAL CREAM 15GM TUBE. TP SCH ×2 (12:40→21:00)
[2018-08-20 15:00] VITALS: BP 119/57
--- NOTE | 2018-08-20 16:09 | RAD ---
Radionuclide hepatobiliary scan, 08/20/2018: HISTORY: Palpitations, cholelithiasis Following IV injection of 5.3 mCi of technetium 99m Choletec there was prompt uptake of the radionuclide from the blood stream by the liver. Activity is evident in the bile ducts at 10 minutes. Gallbladder activity occurred at 20 minutes. Over the first hour there was increasing activity in the gallbladder without extension into the small bowel. This is not considered abnormal. In a normal patient the activity does extend into the bowel during the ejection fraction portion of the study, however, the ejection fraction study was not requested and not performed at this time. If there is clinical concern as to possible distal common bile duct obstruction, delayed imaging can be performed. IMPRESSION: No evidence of cystic duct obstruction. Electronically signed by: Sundeep High MD (08/20/2018 4:06 PM) [facility]
[2018-08-20] MEDS: cefTRIAXone IV Push 1 GM VIAL. IVP SCH (18:00)
[2018-08-20 19:00] VITALS: BP 91/39
[2018-08-20] MEDS: ATORVASTATIN CALCIUM 20 MG TABLET PO SCH (20:56)
[2018-08-20] MEDS: ENOXAPARIN 30 MG/0.3 ML SYRINGE. SQ SCH (21:59)
[2018-08-20 23:00] VITALS: BP 104/53
[2018-08-21] MEDS: LEVOTHYROXINE 25 MCG TABLET. PO SCH (05:59)
[2018-08-21 07:00] VITALS: BP 155/63
[2018-08-21] MEDS: PANTOPRAZOLE 40 MG TABLET.DR. PO SCH ×2 (07:30→08:34)
[2018-08-21] MEDS: ASPIRIN ENTERIC COATED 81 MG TABLET.DR. PO SCH ×2 (07:30→08:35)
--- NOTE | 2018-08-21 08:04 | PDOC ---
PROGRESS NOTES Chief Complaint Chief Complaint rapid afib moderate-severe dementia HTN abd pain with cholelithiasis EMMANUEL, vasomotor mild malnutrition leukocytosis History of Present Illness History of Present Illness Patient is a 83 year old female was brought here by EMS for evaluation of HEART PALPITATION, is moderately demented, just said she did not feel good today after waking up. and daughter at bedside helps the history. EMS found HR 180s, SVT vs. rapid afib. didnot give any meds, pt coverted to sinus later. Takes atenolol, family notes this used to happen once every few months, now seems like a weekly occurrence, pt has a few times of rapid afib recently, not seen card. was cardioverted to sinus 2014. She had nausea today, no vomiting, no chest pain or sob. She has epigastric abd pain. CT showed gallstone. NOW sinus 70s. She is asking when she can go home Leukocytosis resolved today. Cr down from 2 to 1.6 today as well. Seen by GI, equivocal RUQ US, going for HIDA scan later A/P: rapid afib moderate-severe dementia HTN abd pain with cholelithiasis EMMANUEL, vasomotor mild malnutrition leukocytosis plan: card, gi, sx consult echo tsh ok cont metoprolol for now tele ivf labs tmr US showed possible acute lillian - d/c antibiotics dvt ppx PTOT Vitals Vitals Vital Signs Date Time Temp Pulse Resp B/P (MAP) Pulse Ox O2 Delivery O2 Flow Rate FiO2 08/20/18 23:00 98.6 66 18 104/53 (70) 99 Room Air 98.6 Physical Exam General: Alert, Cooperative, No acute distress Heart: Regular rate, Normal S1, Normal S2 Lungs: Clear Abdomen: Normal bowel sounds, Soft Extremities: No clubbing, No edema, Normal pulses Skin: No significant lesion Assessment and Plan Assessmemt and Plan Problems Medical Problems: (1) Cholelithiasis Status: Acute (2) Intermittent palpitations Status: Acute (3) Renal failure Status: Acute Comment Review of Relevant I have reviewed the following items gildardo (where applicable) has been applied. Labs Laboratory Tests Test 08/19/18 11:51 08/19/18 11:57 08/19/18 19:55 08/20/18 04:10 White Blood Count 12.0 x10^3/uL (4.0-11.0) 7.5 x10^3/uL (4.0-11.0) Red Blood Count 4.64 x10^6/uL (3.50-5.40) 3.96 x10^6/uL (3.50-5.40) Hemoglobin 13.7 g/dL (12.0-15.5) 11.8 g/dL (12.0-15.5) Hematocrit 40.0 % (36.0-47.0) 34.1 % (36.0-47.0) Mean Corpuscular Volume 86 fL (79-100) 86 fL (79-100) Mean Corpuscular Hemoglobin 30 pg (25-35) 30 pg (25-35) Mean Corpuscular Hemoglobin Concent 34 g/dL (31-37) 35 g/dL (31-37) Red Cell Distribution Width 13.7 % (11.5-14.5) 13.8 % (11.5-14.5) Platelet Count 257 x10^3/uL (140-400) 209 x10^3/uL (140-400) Neutrophils (%) (Auto) 87 % (31-73) 67 % (31-73) Lymphocytes (%) (Auto) 7 % (24-48) 20 % (24-48) Monocytes (%) (Auto) 4 % (0-9) 8 % (0-9) Eosinophils (%) (Auto) 1 % (0-3) 4 % (0-3) Basophils (%) (Auto) 1 % (0-3) 1 % (0-3) Neutrophils # (Auto) 10.5 x10^3uL (1.8-7.7) 5.1 x10^3uL (1.8-7.7) Lymphocytes # (Auto) 0.8 x10^3/uL (1.0-4.8) 1.5 x10^3/uL (1.0-4.8) Monocytes # (Auto) 0.5 x10^3/uL (0.0-1.1) 0.6 x10^3/uL (0.0-1.1) Eosinophils # (Auto) 0.1 x10^3/uL (0.0-0.7) 0.3 x10^3/uL (0.0-0.7) Basophils # (Auto) 0.1 x10^3/uL (0.0-0.2) 0.1 x10^3/uL (0.0-0.2) Segmented Neutrophils % 87 % (35-66) Band Neutrophils % 1 % (0-9) Lymphocytes % 7 % (24-48) Atypical Lymphocytes % (Manual) 1 % (0-0) Monocytes % 4 % (0-10) Platelet Estimate Adequate (ADEQUATE) Large Platelets Few Prothrombin Time 13.0 SEC (11.7-14.0) Prothromb Time International Ratio 1.0 (0.8-1.1) Sodium Level 141 mmol/L (136-145) 144 mmol/L (136-145) Potassium Level 4.8 mmol/L (3.5-5.1) 4.3 mmol/L (3.5-5.1) Chloride Level 104 mmol/L (98-107) 110 mmol/L (98-107) Carbon Dioxide Level 22 mmol/L (21-32) 23 mmol/L (21-32) Anion Gap 15 (6-14) 11 (6-14) Blood Urea Nitrogen 18 mg/dL (7-20) 15 mg/dL (7-20) Creatinine 2.0 mg/dL (0.6-1.0) 1.6 mg/dL (0.6-1.0) Estimated GFR (Cockcroft-Gault) 23.7 30.7 BUN/Creatinine Ratio 9 (6-20) Glucose Level 139 mg/dL (70-99) 76 mg/dL (70-99) Calcium Level 9.7 mg/dL (8.5-10.1) 8.2 mg/dL (8.5-10.1) Magnesium Level 2.3 mg/dL (1.8-2.4) Total Bilirubin 0.7 mg/dL (0.2-1.0) Aspartate Amino Transf (AST/SGOT) 29 U/L (15-37) Alanine Aminotransferase (ALT/SGPT) 20 U/L (14-59) Alkaline Phosphatase 90 U/L (46-116) Creatine Kinase 72 U/L (26-192) Creatine Kinase MB (Mass) 1.3 ng/mL (0.0-3.6) Creatine Kinase MB Relative Index % (0-4) Troponin I Quantitative < 0.017 ng/mL (0.000-0.055) LD-Uzf-S-Type Natriuretic Peptide 295 pg/mL (0-449) Total Protein 7.6 g/dL (6.4-8.2) Albumin 3.3 g/dL (3.4-5.0) Albumin/Globulin Ratio 0.8 (1.0-1.7) Thyroid Stimulating Hormone (TSH) 1.931 uIU/mL (0.358-3.74) Free Thyroxine 1.45 ng/dL (0.76-1.46) Urine Collection Type Unknown Urine Color Yellow Urine Clarity Clear Urine pH 6.0 Urine Specific [place] 1.010 Urine Protein 100 mg/dL (NEG-TRACE) Urine Glucose (UA) Negative mg/dL (NEG) Urine Ketones (Stick) 15 mg/dL (NEG) Urine Blood Trace (NEG) Urine Nitrite Negative (NEG) Urine Bilirubin Negative (NEG) Urine Urobilinogen Dipstick 0.2 mg/dL (0.2 mg/dL) Urine Leukocyte Esterase Moderate (NEG) Urine RBC 0 /HPF (0-2) Urine WBC 20-40 /HPF (0-4) Urine Squamous Epithelial Cells Mod /LPF Urine Bacteria 0 /HPF (0-FEW) Urine Hyaline Casts Moderate /HPF Urine Mucus Mod /LPF Glucose (Fingerstick) 81 mg/dL (70-99) Microbiology 08/19/18 Urine Culture - Final, Complete 08/19/18 Urine Culture Result 1 (ERNESTO) - Final, Complete Medications Current Medications Sodium Chloride 1,000 ml @ 1,000 mls/hr 1X ONCE IV Last administered on 08/19at 14:16; Start 08/19/18 at 13:00; Stop 08/19/18 at 13:59; Status DC Morphine Sulfate (Morphine Sulfate) 4 mg 1X ONCE IV Last administered on 08/19at 14:16; Start 08/19/18 at 14:00; Stop 08/19/18 at 14:01; Status DC Ondansetron HCl (Zofran) 4 mg PRN Q8HRS PRN IV NAUSEA/VOMITING; Start at 15:15; Stop 08/20/18 at 15:14; Status DC Morphine Sulfate (Morphine Sulfate) 2 mg PRN Q2HR PRN IV PAIN; Start 08/19/18 at 15:15; Stop 08/20/18 at 15:14; Status DC Sodium Chloride 1,000 ml @ 75 mls/hr Q08N08H IV Last administered on at 05:48; Start 08/19/18 at 15:08; Stop 08/20/18 at 15:07; Status DC Aspirin (Ecotrin) 81 mg DAILYAC PO Last administered on 08/20/18at 12:39; Start 08/20/18 at 07:30 Atorvastatin Calcium (Lipitor) 20 mg QHS PO Last administered on 08/20/18at 20: 56; Start 08/19/18 at 21:00 Clopidogrel Bisulfate (Plavix) 75 mg DAILY PO ; Start 08/20/18 at 09:00; Stop 08/20/18 at 09:00; Status DC Metoprolol Tartrate (Lopressor) 25 mg BID PO Last administered on 08/20/18at 12: 39; Start 08/19/18 at 21:00 Clobetasol Propionate (Temovate) 1 lit BID TP Last administered on 08/20/18at 21 :00; Start 08/19/18 at 21:00 Levothyroxine Sodium (Synthroid) 25 mcg DAILY06 PO Last administered on at 05:59; Start 08/20/18 at 06:00 Acetaminophen (Tylenol) 650 mg PRN Q6HRS PRN PO FEVER Last administered on 08/20at 15:43; Start 08/19/18 at 17:00 Ondansetron HCl (Zofran) 4 mg PRN Q6HRS PRN IV NAUSEA/VOMITING; Start at 17:00 Morphine Sulfate (Morphine Sulfate) 2 mg PRN Q2HR PRN IV MODERATE TO SEVERE PAIN; Start 08/19/18 at 17:00 Tramadol HCl (Ultram) 50 mg PRN Q6HRS PRN PO MILD TO MODERATE PAIN Last administered on 08/19/18at 23:07; Start 08/19/18 at 17:00 Docusate Sodium (Colace) 100 mg PRN DAILY PRN PO CONSTIPATION; Start 08/19/18 at 17:00 Enoxaparin Sodium (Lovenox 30mg Syringe) 30 mg Q24H SQ Last administered on 08/20/18at 21:59; Start 08/19/18 at 21:00 Ceftriaxone Sodium 1 gm/ Dextrose 50 ml @ 100 mls/hr Q24H IV ; Start 08/19/18 at 17:00; Status UNV Metronidazole 100 ml @ 100 mls/hr Q12HR IV Last administered on 08/20/18at 20: 56; Start 08/19/18 at 18:00 Ceftriaxone Sodium (Rocephin) 1 gm Q24H IVP Last administered on 08/20/18at 18: 00; Start 08/19/18 at 18:00 Lactobacillus Rhamnosus (Culturelle) 1 cap BID PO Last administered on at 20:56; Start 08/19/18 at 21:00 Alprazolam (Xanax) 0.25 mg PRN Q8HRS PRN PO ANXIETY / AGITATION Last administered on 08/20/18at 23:44; Start 08/19/18 at 17:30 Pantoprazole Sodium (Protonix) 40 mg DAILYAC PO ; Start 08/21/18 at 07:30 Active Scripts Active Atorvastatin Calcium 20 Mg Tablet 20 Mg PO QHS Reported Omeprazole 20 Mg Capsule.dr 20 Mg PO DAILY Fluoxetine Hcl 20 Mg Capsule 1 Cap PO DAILY Atenolol 50 Mg Tablet 1 Tab PO DAILY Aspirin Ec (Aspirin) 81 Mg Tablet.dr 81 Mg PO DAILYAC Levothyroxine Sodium 25 Mcg Tablet 25 Mcg PO DAILYAC Hydrocortisone Valerate 15 Gm Oint...g. 1 Lit TP BID Clobetasol Propionate 15 Gm Oint...g. 1 Lit TP BID Vitals/I & O Vital Sign - Last 24 Hours 08/20/18 08/20/18 08/20/18 08/20/18 11:00 12:39 15:00 19:00 Temp 97.4 97.9 98.6 97.4 97.9 98.6 Pulse 60 60 63 62 Resp 18 18 18 B/P (MAP) 124/56 (78) 124/56 119/57 (77) 91/39 (56) Pulse Ox 94 95 98 O2 Delivery Room Air Room Air Room Air 08/20/18 08/20/18 08/20/18 20:00 21:00 23:00 Temp 98.6 98.6 Pulse 62 66 Resp 18 B/P (MAP) 91/39 104/53 (70) Pulse Ox 99 O2 Delivery Room Air Room Air Intake and Output 08/20/18 08/20/18 08/21/18 15:00 23:00 07:00 Intake Total 110 ml 0 ml 500 ml Balance 110 ml 0 ml 500 ml LUI GUERRERO MD Aug 21, 2018 08:04
[2018-08-21] MEDS: LACTOBACILLUS RHAMNOSUS GG 1 CAPSULE. PO SCH ×2 (08:35→09:00)
[2018-08-21] MEDS: METOPROLOL TART IMMED RELEASE 25 MG TABLET. PO SCH ×2 (08:36→09:00)
[2018-08-21] MEDS: CLOBETASOL EMOLLIENT 0.05% TOPICAL CREAM 15GM TUBE. TP SCH (09:00)
--- NOTE | 2018-08-21 09:56 | PDOC ---
CARDIO Progress Notes Date and Time Date of Service 08/21/2018 Time of Evaluation 0940 Subjective Subjective: No Chest Pain, No shortness of breath, No Palpitations, Other ( wanting to go home) Vitals Vitals Vital Signs Date Time Temp Pulse Resp B/P (MAP) Pulse Ox O2 Delivery O2 Flow Rate FiO2 08/21/18 08:36 72 155/63 08/21/18 07:00 98.0 18 99 Room Air 98.0 Weight Weight [ ] Input and Output Intake and Output Intake and Output 08/21/18 07:00 Intake Total 610 ml Balance 610 ml Intake Oral 610 ml # Voids 4 Microbiology Micro Microbiology 08/19/18 Urine Culture - Final, Complete 08/19/18 Urine Culture Result 1 (ERNESTO) - Final, Complete Physical Exam HEENT: Neck Supple W Full Motion Chest: Symmetric LUNGS: Other (diminished bases) Heart: S1S2, RRR (Sr no significant rhythm ectopies overnight), murmurs (2/6 diastolic murmur to GARRETT border) Abdomen: Soft N/T Extremities: No Calf Tenderness, Other (1+ bilateral LE pitting edema) Neurology: alert, follow commands, other (periods of confusion) Assessment Assessment PAFIB: Known paroxysms. Maintain SR overnight, continue metoprolol and ASA. EF and WM nml HTN HLP Cholelithiasis: no surgical plans per gen surgery. Dementia with hx of multiple falls Recommendations 1. Continue metoprolol and ASA for stroke prevention. High risks for injury 2. Doubt she will be compliant with an outpt event monitor 3. 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 CELESTE WONG APRN Aug 21, 2018 09:56
--- NOTE | 2018-08-21 10:07 | PDOC ---
Subjective: Subjective: I saw her earlier this morning - says she had a bad night and didn't sleep. No can't find her cell phone. RN reports agitation and confusion, took off her gown, etc. No reports of abd pain or difficulty eating. Objective: Vital Signs: Vital Signs Date Time Temp Pulse Resp B/P (MAP) Pulse Ox O2 Delivery O2 Flow Rate FiO2 08/21/18 07:00 98.0 72 18 155/63 (93) 99 Room Air 98.0 Labs: URINE CULTURE Final Final report URINE CULTURE RES 1 Final Comment Culture shows less than 10,000 colony forming units of bacteria per milliliter of urine. This colony count is not generally considered to be clinically significant. Imaging: HIDA 08/20 IMPRESSION: No evidence of cystic duct obstruction.\ Echocardiogram 08/20 <Conclusion> The left ventricular systolic function is normal. The Ejection Fraction is 55-60%. There is normal LV segmental wall motion. Mild aortic regurgitation. Trace mitral regurgitation. Trace tricuspid regurgitation. The PA pressure was estimated at 28 mmHg. There is no evidence of significant pericardial effusion. PE: GEN: NAD LUNGS: CTAB HEART: RRR ABD: S/ND/NT NEURO/PSYCH: confused A/P: Dementia/agitation A Fib - on ASA ?abd pain, decreased appetite - ?resolved Cholelithiasis - HIDA w/o obstruction GERD - on PPI -- Stable GI-gar. Continue PPI. Will check if outside records received. DELLA SKINNER Aug 21, 2018 10:07
[2018-08-21 10:45] LABS: ALBUMIN 2.8 g/dL (3.4-5.0); ALBUMIN/GLOBULIN RATIO 0.8 (1.0-1.7); CALCIUM 8.7 mg/dL (8.5-10.1); CREATININE 1.7 mg/dL (0.6-1.0); GFR 28.6; POTASSIUM 3.9 mmol/L (3.5-5.1); TOTAL BILIRUBIN 0.4 mg/dL (0.2-1.0); TOTAL PROTEIN 6.3 g/dL (6.4-8.2)
[2018-08-21 11:00] VITALS: BP 125/53
--- NOTE | 2018-08-21 11:27 | PDOC ---
RJ MCCARTHY EXCEPTIONAL CHILDREN TEACHER ASSISTANT 08/21/18 1127: SURGICAL PROGRESS NOTE Subjective no abd pain no n/v Vital Signs Vital Signs Date Time Temp Pulse Resp B/P (MAP) Pulse Ox O2 Delivery O2 Flow Rate FiO2 08/21/18 07:30 Room Air 08/21/18 07:00 98.0 72 18 155/63 (93) 99 98.0 I&O Intake and Output 08/21/18 07:00 Intake Total 610 ml Balance 610 ml Intake Oral 610 ml # Voids 4 General: Cooperative, No acute distress Abdomen: Soft, No tenderness Labs Laboratory Tests Test 08/19/18 11:51 08/19/18 11:57 08/19/18 19:55 08/20/18 04:10 White Blood Count 12.0 x10^3/uL (4.0-11.0) 7.5 x10^3/uL (4.0-11.0) Red Blood Count 4.64 x10^6/uL (3.50-5.40) 3.96 x10^6/uL (3.50-5.40) Hemoglobin 13.7 g/dL (12.0-15.5) 11.8 g/dL (12.0-15.5) Hematocrit 40.0 % (36.0-47.0) 34.1 % (36.0-47.0) Mean Corpuscular Volume 86 fL (79-100) 86 fL (79-100) Mean Corpuscular Hemoglobin 30 pg (25-35) 30 pg (25-35) Mean Corpuscular Hemoglobin Concent 34 g/dL (31-37) 35 g/dL (31-37) Red Cell Distribution Width 13.7 % (11.5-14.5) 13.8 % (11.5-14.5) Platelet Count 257 x10^3/uL (140-400) 209 x10^3/uL (140-400) Neutrophils (%) (Auto) 87 % (31-73) 67 % (31-73) Lymphocytes (%) (Auto) 7 % (24-48) 20 % (24-48) Monocytes (%) (Auto) 4 % (0-9) 8 % (0-9) Eosinophils (%) (Auto) 1 % (0-3) 4 % (0-3) Basophils (%) (Auto) 1 % (0-3) 1 % (0-3) Neutrophils # (Auto) 10.5 x10^3uL (1.8-7.7) 5.1 x10^3uL (1.8-7.7) Lymphocytes # (Auto) 0.8 x10^3/uL (1.0-4.8) 1.5 x10^3/uL (1.0-4.8) Monocytes # (Auto) 0.5 x10^3/uL (0.0-1.1) 0.6 x10^3/uL (0.0-1.1) Eosinophils # (Auto) 0.1 x10^3/uL (0.0-0.7) 0.3 x10^3/uL (0.0-0.7) Basophils # (Auto) 0.1 x10^3/uL (0.0-0.2) 0.1 x10^3/uL (0.0-0.2) Segmented Neutrophils % 87 % (35-66) Band Neutrophils % 1 % (0-9) Lymphocytes % 7 % (24-48) Atypical Lymphocytes % (Manual) 1 % (0-0) Monocytes % 4 % (0-10) Platelet Estimate Adequate (ADEQUATE) Large Platelets Few Prothrombin Time 13.0 SEC (11.7-14.0) Prothromb Time International Ratio 1.0 (0.8-1.1) Sodium Level 141 mmol/L (136-145) 144 mmol/L (136-145) Potassium Level 4.8 mmol/L (3.5-5.1) 4.3 mmol/L (3.5-5.1) Chloride Level 104 mmol/L (98-107) 110 mmol/L (98-107) Carbon Dioxide Level 22 mmol/L (21-32) 23 mmol/L (21-32) Anion Gap 15 (6-14) 11 (6-14) Blood Urea Nitrogen 18 mg/dL (7-20) 15 mg/dL (7-20) Creatinine 2.0 mg/dL (0.6-1.0) 1.6 mg/dL (0.6-1.0) Estimated GFR (Cockcroft-Gault) 23.7 30.7 BUN/Creatinine Ratio 9 (6-20) Glucose Level 139 mg/dL (70-99) 76 mg/dL (70-99) Calcium Level 9.7 mg/dL (8.5-10.1) 8.2 mg/dL (8.5-10.1) Magnesium Level 2.3 mg/dL (1.8-2.4) Total Bilirubin 0.7 mg/dL (0.2-1.0) Aspartate Amino Transf (AST/SGOT) 29 U/L (15-37) Alanine Aminotransferase (ALT/SGPT) 20 U/L (14-59) Alkaline Phosphatase 90 U/L (46-116) Creatine Kinase 72 U/L (26-192) Creatine Kinase MB (Mass) 1.3 ng/mL (0.0-3.6) Creatine Kinase MB Relative Index % (0-4) Troponin I Quantitative < 0.017 ng/mL (0.000-0.055) OF-Uij-R-Type Natriuretic Peptide 295 pg/mL (0-449) Total Protein 7.6 g/dL (6.4-8.2) Albumin 3.3 g/dL (3.4-5.0) Albumin/Globulin Ratio 0.8 (1.0-1.7) Thyroid Stimulating Hormone (TSH) 1.931 uIU/mL (0.358-3.74) Free Thyroxine 1.45 ng/dL (0.76-1.46) Urine Collection Type Unknown Urine Color Yellow Urine Clarity Clear Urine pH 6.0 Urine Specific [place] 1.010 Urine Protein 100 mg/dL (NEG-TRACE) Urine Glucose (UA) Negative mg/dL (NEG) Urine Ketones (Stick) 15 mg/dL (NEG) Urine Blood Trace (NEG) Urine Nitrite Negative (NEG) Urine Bilirubin Negative (NEG) Urine Urobilinogen Dipstick 0.2 mg/dL (0.2 mg/dL) Urine Leukocyte Esterase Moderate (NEG) Urine RBC 0 /HPF (0-2) Urine WBC 20-40 /HPF (0-4) Urine Squamous Epithelial Cells Mod /LPF Urine Bacteria 0 /HPF (0-FEW) Urine Hyaline Casts Moderate /HPF Urine Mucus Mod /LPF Glucose (Fingerstick) 81 mg/dL (70-99) Test 08/21/18 09:40 Sodium Level 143 mmol/L (136-145) Potassium Level 3.9 mmol/L (3.5-5.1) Chloride Level 108 mmol/L (98-107) Carbon Dioxide Level 24 mmol/L (21-32) Anion Gap 11 (6-14) Blood Urea Nitrogen 17 mg/dL (7-20) Creatinine 1.7 mg/dL (0.6-1.0) Estimated GFR (Cockcroft-Gault) 28.6 BUN/Creatinine Ratio 10 (6-20) Glucose Level 99 mg/dL (70-99) Calcium Level 8.7 mg/dL (8.5-10.1) Total Bilirubin 0.4 mg/dL (0.2-1.0) Aspartate Amino Transf (AST/SGOT) 20 U/L (15-37) Alanine Aminotransferase (ALT/SGPT) 16 U/L (14-59) Alkaline Phosphatase 70 U/L (46-116) Total Protein 6.3 g/dL (6.4-8.2) Albumin 2.8 g/dL (3.4-5.0) Albumin/Globulin Ratio 0.8 (1.0-1.7) Laboratory Tests Test 08/21/18 09:40 Sodium Level 143 mmol/L (136-145) Potassium Level 3.9 mmol/L (3.5-5.1) Chloride Level 108 mmol/L (98-107) Carbon Dioxide Level 24 mmol/L (21-32) Anion Gap 11 (6-14) Blood Urea Nitrogen 17 mg/dL (7-20) Creatinine 1.7 mg/dL (0.6-1.0) Estimated GFR (Cockcroft-Gault) 28.6 BUN/Creatinine Ratio 10 (6-20) Glucose Level 99 mg/dL (70-99) Calcium Level 8.7 mg/dL (8.5-10.1) Total Bilirubin 0.4 mg/dL (0.2-1.0) Aspartate Amino Transf (AST/SGOT) 20 U/L (15-37) Alanine Aminotransferase (ALT/SGPT) 16 U/L (14-59) Alkaline Phosphatase 70 U/L (46-116) Total Protein 6.3 g/dL (6.4-8.2) Albumin 2.8 g/dL (3.4-5.0) Albumin/Globulin Ratio 0.8 (1.0-1.7) Problem List Problems Medical Problems: (1) Cholelithiasis Status: Acute (2) Intermittent palpitations Status: Acute (3) Renal failure Status: Acute Assessment/Plan HIDA without cholecystitis--no surgical plans, low fat diet MESERET HAMPTON MD 08/21/18 1342: SURGICAL PROGRESS NOTE Assessment/Plan pt seen as above will sign off please call if needed Thank you RJ MCCARTHY APRN Aug 21, 2018 11:27 MESERET HAMPTON MD Aug 21, 2018 13:42
[2018-08-21] MEDS ORDERED: OLAN2.5T3 PO (13:24)
[2018-08-21] MEDS ORDERED: METO25TA4 PO (13:24)
--- NOTE | 2018-08-21 13:27 | DISCH ---
DISCHARGE WITH HOME HEALTH DISCHARGE INFORMATION: Discharge Date: Aug 21, 2018 Final Diagnosis: Problems Medical Problems: (1) Cholelithiasis Status: Acute (2) Intermittent palpitations Status: Acute (3) Renal failure Status: Acute Condition on Discharge: Stable CODE STATUS: Code Status: Full HOME HEALTH: Face to Face: I certify this patient is under my care and that I, or a nurse practitioner or physician's library media assistant working with me, had a face to face encounter that meets the physician face to face encounter requirements with this patient on 2017. Medical Complications: Dementia, Falls, HTN Chcf For: Admin/Educate Injections, Assess & Educate Safety, Assess/ Skilled Observatio, Medication Management Physical Therapy For: Evalulation/Treatment Occupational Therapy For: Evaluation/Treatment Home Health Aide For: Self-care Pt Meets Homebound Status: Fatigue w/ amb., Limited distance walking, Poor cognition POST DISCHARGE ORDERS: Activity Instructions for Disc: Activity as tolerated Weight Bearing Status after Di: Full weight bearing DIET AFTER DISCHARGE: Cardiac (Low fat) CHECKS AFTER DISCHARGE: Checks after discharge: Check blood press - daily, Check your Temp as needed FOLLOW-UP: Follow up with: Gastroenterology - Dr. Mathews Follow Up With: Neurology - [facility] TREATMENT/EQUIPMENT ORDERS: Adaptive Equipment Issued: None CERTIFICATION STATEMENT: Certification Statement: Certification Statement: Based on the above finding, I certify that this patient is confined to the home and needs intermittent senior care care, physical therapy and/or speech therapy, or continues to need occupational therapy.~ This patient is under my care, and I have initiated the establishment of the plan of care.~ This patient will be followed by myself or a community physician who will periodically review the plan of care. Home Meds Active Scripts Olanzapine (ZYPREXA) 2.5 Mg Tablet, 1 TAB PO QHS PRN for AGITATION, #30 TAB 1 Refill Prov:LUI GUERRERO MD 08/21/18 Metoprolol Tartrate (METOPROLOL TARTRATE) 25 Mg Tablet, 25 MG PO BID for SVT for 30 Days, #60 TAB 1 Refill Prov:LUI GUERRERO MD 08/21/18 Atorvastatin Calcium (ATORVASTATIN CALCIUM) 20 Mg Tablet, 20 MG PO QHS, #30 Prov:FRANCIS VANN MD 10/02/15 Reported Medications Omeprazole (OMEPRAZOLE) 20 Mg Capsule., 20 MG PO DAILY for acid reflux 08/19/18 Fluoxetine Hcl (FLUOXETINE HCL) 20 Mg Capsule, 1 CAP PO DAILY for dementia, #90 CAP 1 Refill 08/19/18 Atenolol (ATENOLOL) 50 Mg Tablet, 1 TAB PO DAILY for htn, #30 TAB 5 Refills 08/19/18 Aspirin (ASPIRIN EC) 81 Mg Tablet., 81 MG PO DAILYAC for blood thinner 09/29/15 Levothyroxine Sodium (LEVOTHYROXINE SODIUM) 25 Mcg Tablet, 25 MCG PO DAILYAC for THYROID SUPPLEMENT, #30 TAB 0 Refills 09/29/15 Hydrocortisone Valerate (HYDROCORTISONE VALERATE) 15 Gm Oint...g., 1 DANIEL TP BID for psoriasis 09/29/15 Clobetasol Propionate (CLOBETASOL PROPIONATE) 15 Gm Oint...g., 1 DANIEL TP BID for psoriasis 09/29/15 LUI GUERRERO MD Aug 21, 2018 13:27
--- NOTE | 2018-08-24 11:00 | PDOC3 ---
Discharge Summary Visit Information Date of Admission: Aug 19, 2018 Date of Discharge: Aug 21, 2018 Admitting Diagnosis: Atrial fibrillation with RVR Final Diagnosis Problems Medical Problems: (1) Cholelithiasis Status: Acute (2) Intermittent palpitations Status: Acute (3) Renal failure Status: Acute Brief Hospital Course Allergies Allergies Coded Allergies Type Severity Reaction Last Updated Verified No Known Drug Allergies 09/28/15 No Brief Hospital Course Patient is a 83 year old female was brought here by EMS for evaluation of HEART PALPITATION, is moderately demented, just said she did not feel good today after waking up. and daughter at bedside helps the history. EMS found HR 180s, SVT vs. rapid afib. didnot give any meds, pt coverted to sinus later. Takes atenolol, family notes this used to happen once every few months, now seems like a weekly occurrence, pt has a few times of rapid afib recently, not seen card. was cardioverted to sinus 2014. She had nausea today, no vomiting, no chest pain or sob. She has epigastric abd pain. CT showed gallstone. NOW sinus 70s. She is asking when she can go home Leukocytosis resolved today. Cr down from 2 to 1.4 today as well. Seen by GI, equivocal RUQ US, going for HIDA scan later outpatient A/P: rapid afib moderate-severe dementia HTN abd pain with cholelithiasis EMMANUEL, vasomotor mild malnutrition leukocytosis plan: card, gi, sx consult echo tsh ok cont metoprolol for now tele ivf labs tmr US showed possible acute lillian - f/u GI outpatient Discharge Information Condition at Discharge: Improved Follow Up: Weeks (2) Disposition/Orders: D/C to Home Scheduled Aspirin (Aspirin Ec) 81 Mg Tablet., 81 MG PO DAILYAC for blood thinner, ( Reported) Entered as Reported by: NICHOLE SELF RPH on 09/29/15 1103 Last Taken: Unknown Dose on 08/19/18 0800 Last Action: Last Taken Edited on 08/19/181704 by MANJINDER RAMIREZ Atorvastatin Calcium (Atorvastatin Calcium) 20 Mg Tablet, 20 MG PO QHS, #30 Prescribed by: FRANCIS VANN MD on 10/02/15 1412 Last Taken: Unknown Dose on 08/17/18 2100 Last Action: Last Taken Edited on 08/19/181704 by MANJINDER RAMIREZ Clobetasol Propionate (Clobetasol Propionate) 15 Gm Oint...g., 1 DANIEL TP BID for psoriasis, (Reported) Entered as Reported by: NICHOLE SELF RP on 09/29/15 0945 Last Taken: Unknown Dose on 08/18/18 0800 Last Action: Last Taken Edited on 08/19/181704 by MANJINDER RAMIREZ Fluoxetine Hcl (Fluoxetine Hcl) 20 Mg Capsule, 1 CAP PO DAILY for dementia, #90 Ref 1 (Reported) Entered as Reported by: MANJINDER RAMIREZ on 08/19/181704 Last Taken: Unknown Dose on 08/19/18 08 Last Action: New Order on 08/19 by MANJINDER RAMIREZ Hydrocortisone Valerate (Hydrocortisone Valerate) 15 Gm Oint...g., 1 DANIEL TP BID for psoriasis, (Reported) Entered as Reported by: NICHOLE SELF RPH on 09/29/15 0945 Last Taken: Unknown Dose on 08/18/18 09 Last Action: Last Taken Edited on 08/19/181704 by MANJINDER RAMIREZ Levothyroxine Sodium (Levothyroxine Sodium) 25 Mcg Tablet, 25 MCG PO DAILYAC for THYROID SUPPLEMENT, #30 Ref 0 (Reported) Entered as Reported by: NICHOLE SELF RP on 09/29/15 1103 Last Taken: Unknown Dose on 08/19/18 0700 Last Action: Last Taken Edited on 08/19/181704 by MANJINDER RAMIREZ Metoprolol Tartrate (Metoprolol Tartrate) 25 Mg Tablet, 25 MG PO BID for SVT for 30 Days, #60 Ref 1 Prescribed by: LUI GUERRERO MD on 08/21/18 1324 Omeprazole (Omeprazole) 20 Mg Capsule.dr, 20 MG PO DAILY for acid reflux, ( Reported) Entered as Reported by: MANJINDER RAMIREZ on 08/19/181704 Last Taken: Unknown Dose on 08/18/18 0800 Last Action: New Order on 08/19 by MANJINDER RAMIREZ Scheduled PRN Olanzapine (Zyprexa) 2.5 Mg Tablet, 1 TAB PO QHS PRN for AGITATION, #30 Ref 1 Prescribed by: LUI GUERRERO MD on 08/21/18 1324 Discontinued Medications Atenolol (Atenolol) 50 Mg Tablet, 1 TAB PO DAILY for htn, #30 Ref 5 (Reported) Entered as Reported by: MANJINDER RAMIREZ on 08/19/181704 Last Taken: Unknown Dose on 08/18/18 0800 Last Action: New Order on 08/19 by LUI OLIVEIRA MD Aug 24, 2018 11:00
== END 2018-08-21 14:26 | disposition home health service (06) | DRG 871 ==
LOC: ER 11:21 → 5 NORTH 15:07
PROVIDERS: ADMIT Internal Medicine; ATTEND Internal Medicine
DX: A41.9 Sepsis, unspecified organism (principal); N17.0 Acute kidney failure with tubular necrosis; E44.1 Mild protein-calorie malnutrition; I47.1 Supraventricular tachycardia; K80.20 Calculus of gallbladder without cholecystitis without obstruction; K57.30 Diverticulosis of large intestine without perforation or abscess without bleeding; I48.0 Paroxysmal atrial fibrillation; I48.91 Unspecified atrial fibrillation; E03.9 Hypothyroidism, unspecified; E78.5 Hyperlipidemia, unspecified; F03.90 Unspecified dementia, unspecified severity, without behavioral disturbance, psychotic disturbance, mood disturbance, and anxiety; F41.9 Anxiety disorder, unspecified; I12.9 Hypertensive chronic kidney disease with stage 1 through stage 4 chronic kidney disease, or unspecified chronic kidney disease; I35.1 Nonrheumatic aortic (valve) insufficiency; K21.9 Gastro-esophageal reflux disease without esophagitis; M19.90 Unspecified osteoarthritis, unspecified site; M81.0 Age-related osteoporosis without current pathological fracture; N18.9 Chronic kidney disease, unspecified; Z79.82 Long term (current) use of aspirin; Z82.49 Family history of ischemic heart disease and other diseases of the circulatory system; Z79.899 Other long term (current) drug therapy; Z87.440 Personal history of urinary (tract) infections; Z68.26 Body mass index [BMI] 26.0-26.9, adult
CPT/HCPCS: 36415; 71045; 74176; 76705; 78226; 80048; 80053; 81001; 82553; 82962; 83735; 83880; 84439; 84443; 84484; 85007; 85025; 85610; 87086; 93005; 93306; 96361; 96374; A9537; J0696; J1650; J2270; J3490; J7030; 99285-25

== ENCOUNTER → 2020-06-19 | Outpatient (CLI) | payer MEDICARE, OTHER ==
[2019-11-18 11:00] VITALS: BP 113/49
[~2020-06-19] MED LIST changes: +ACET500T68 PO; -ASPI-612 PO; +ASPI-886 PO; +ATEN50TA PO; +CALC-98 PO; +CLOB15CR TP; +DONE10TA7 PO; +FLUO20CA20 PO; +FURO-69 PO; +GUAI400T78 PO; +LATA7.5D OP; +LEVO50TA5 PO; +MEMA10TA PO; +MULT-245 PO; +NYST15PO9 TP; +OLAN2.5T3 PO; +OMEP20CA16 PO; +PANT20TA2 PO; +POLY17PO29 PO; +QUET100T4 PO; +QUET25TA5 PO; +SIMV20TA18 PO; -SIMV20TA3 PO
--- NOTE | 2020-06-19 16:34 | RAD ---
EXAM: Thyroid Ultrasound INDICATION: Reason: RIGHT THYROID NODULE ON CT. Patient is an 85-year-old woman with dementia who fell and was found to have a right thyroid lobe nodule on C-spine CT that was recommended for ultrasound evaluation: ? TECHNIQUE: Real-time ultrasound of the thyroid was performed with permanent freeze-frame documentation. COMPARISON: CT C-spine of 06/02/2020 ? FINDINGS: THYROID: Thyroid gland is normal and homogeneous echogenicity. ? Right Lobe: 4.1 x 1.7 x 1.8 cm. At the medial inferior pole is a dominant 1.6 x 1.1 x 1.3 cm isoechoic wider than tall mixed solid and cystic nodule with ill-defined margins, and no definite echogenic reflectors suspicious for calcifications (though there is acoustic enhancement at fluid solid tissue interfaces). Total points using TI RADS scoring is 2. At the superior medial right thyroid lobe is a solid, wider than tall 0.8 x 0.9 x 0.5 cm solid hypoechoic nodule with smooth margins and no echogenic foci. Total points using TI RADS scoring is 4. This is moderately suspicious and recommended for follow-up at 1, 2, 3 and 5 years if it is 1 cm or greater in size, and for fine-needle aspiration biopsy if 1.5 cm or greater in size. Since it is less than a centimeter in size, imaging follow-up should be at the discretion of the patient's referring clinician in light of her overall health and comorbidities. ? Left Lobe: 3.2 x 1.3 x 1.6 cm. At the inferior pole left thyroid lobe is a 3 mm colloid cyst, not suspicious. ? Isthmus: 0.3 cm. ?? No thyroid nodule. ? OTHER: No evidence of adjacent cervical adenopathy. ? IMPRESSION: ? There are 2 nodules in the right thyroid lobe that do not meet criteria for biopsy recommendation or of follow-up ultrasound imaging based on either size or morphology criteria. Any decision to pursue biopsy should be made clinically, in light of the patient's overall health status and preferences. In my opinion, it is reasonable and safe to defer biopsy based on the aforementioned considerations. Discussed with the patient's (POA) at the conclusion of the examination and left a voice message for the patient's referring clinician by telephone at 11:11 AM on 06/19/2020. Electronically signed by: Abdiaziz Degroot MD (06/19/2020 4:31 PM) [id number]
== END | disposition home or self-care (01) ==
LOC: US 10:06
PROVIDERS: ATTEND Nurse Practitioner Adult Health
DX: E04.2 Nontoxic multinodular goiter (principal)
CPT/HCPCS: 76536

== ENCOUNTER → 2020-10-24 | Outpatient (CLI) | payer MEDICARE, OTHER ==
[2019-11-18 11:00] VITALS: BP 113/49
[~2020-10-24] MED LIST changes: +ASPI325T8 PO
== END ==
LOC: LAB 11:27
PROVIDERS: ATTEND Internal Medicine Gastroenterology
DX: Z01.812 Encounter for preprocedural laboratory examination (principal); R10.13 Epigastric pain; Z20.828 Contact with and (suspected) exposure to other viral communicable diseases
CPT/HCPCS: U0003

== ENCOUNTER → 2020-10-26 | Day surgery (SDC) | payer MEDICARE, OTHER ==
[~2020-10-26] MED LIST changes: +GLYCOPYRROLATE 1 MG/5 ML VIAL. ONE; +IV RINGERS,LACTATED 1000ML 1,000 ML IV SCH; +LIDOCAINE 2% PF 5 ML VIAL. ONE; +PHENYLEPHRINE in 0.9% NACL PF 1 MG/10 ML SYRINGE. IV ONE; +PROPOFOL 10 MG/ML (20ML) VIAL. IV ONE
[2020-10-26 13:22] VITALS: BP 112/59
== END | disposition home or self-care (01) ==
LOC: ENDOS 10:47
PROVIDERS: ATTEND Internal Medicine Gastroenterology
DX: R10.84 Generalized abdominal pain (principal); R10.13 Epigastric pain; K64.0 First degree hemorrhoids; K57.30 Diverticulosis of large intestine without perforation or abscess without bleeding; K29.50 Unspecified chronic gastritis without bleeding; R11.2 Nausea with vomiting, unspecified; I13.0 Hypertensive heart and chronic kidney disease with heart failure and stage 1 through stage 4 chronic kidney disease, or unspecified chronic kidney disease; I50.9 Heart failure, unspecified; E78.00 Pure hypercholesterolemia, unspecified; I48.91 Unspecified atrial fibrillation; K21.9 Gastro-esophageal reflux disease without esophagitis; N18.9 Chronic kidney disease, unspecified; M19.90 Unspecified osteoarthritis, unspecified site; E03.9 Hypothyroidism, unspecified; F41.9 Anxiety disorder, unspecified; F32.9 Major depressive disorder, single episode, unspecified; Z87.440 Personal history of urinary (tract) infections; Z86.73 Personal history of transient ischemic attack (TIA), and cerebral infarction without residual deficits; Z79.899 Other long term (current) drug therapy; Z79.82 Long term (current) use of aspirin; Z98.890 Other specified postprocedural states; Z82.49 Family history of ischemic heart disease and other diseases of the circulatory system
CPT/HCPCS: 43235; 45378; J2370; J2704; J3490; 45380